=== PATIENT | female | born 1960 | race Caucasian/White ===

== ENCOUNTER → 2016-07-24 | Outpatient (CLI) | payer OTHER ==
[~2016-07-24] MED LIST: ABL/5 PO; ALBUTEROL NEB INH; ALEN70TA2 PO; ALPR-411 PO; ASPI325T45 PO; CALC-354 PO; CITA40TA12 PO; CLOP1TAB15 PO; CMBIN INH; FLNIN NAE; FNTTP50 TD; HYDR25SU4 PR; IPRA1AER2 INH; LISI-729 PO; OMEP40CA41 PO; OXYC1TAB3 PO; PREG1CAP28 PO; ROSU20TA PO; TOPI100T20; VERA240T20; ZOLP5TAB PO; [UNRECOGNIZED DRUG - CODE] OP
[2016-07-24 13:36] LABS: BLOOD UREA NITROGEN 14 mg/dl (7-18); CREATININE 0.87 mg/dl (0.60-1.20)
--- NOTE | 2016-07-24 13:40 | DIAGNOSTIC IMAGING REPORT ---
RIGHT ANKLE 3 VIEWS CLINICAL HISTORY: Fall several weeks ago. Right ankle pain. FINDINGS: 3 views of the right ankle are obtained. No prior studies are available for comparison at the time of dictation. The skeletal structures are osteopenic. No fracture is seen. The ankle mortise is intact. There is a small joint effusion. The overlying soft tissues are within normal limits. There is a large dorsal calcaneal enthesophyte. IMPRESSION: Joint effusion with no right ankle fracture identified. Electronically signed by: Raghav Curry M.D. 07/24/2016 1:39 PM Dictated Date/Time: 07/24/2016 1:37 PM
--- NOTE | 2016-07-24 13:41 | DIAGNOSTIC IMAGING REPORT ---
RIGHT FOOT MIN 3 VIEWS ROUTINE CLINICAL HISTORY: Fall 2 weeks ago with forced plantar flexion Right trauma. Pain. COMPARISON: None. DISCUSSION: The bones and joint spaces appear intact. There is no evidence of fracture, dislocation or bony disease. There is no evidence for soft tissue swelling. IMPRESSION: Negative study. Electronically signed by: Cody Sainz M.D. 07/24/2016 1:40 PM Dictated Date/Time: 07/24/2016 1:39 PM
== END | disposition home or self-care (01) ==
LOC: C.RAD 12:35
PROVIDERS: ATTEND Family Medicine
DX: R10.32 Left lower quadrant pain (principal)

== ENCOUNTER → 2016-07-26 | Outpatient (CLI) | payer OTHER ==
--- NOTE | 2016-07-26 12:55 | DIAGNOSTIC IMAGING REPORT ---
ABDOMEN AND PELVIS CT WITH ORAL CONTRAST CT DOSE: 281.20 mGy.cm HISTORY: Pain R10.32 Abdominal pain, left lower quadrant LLQ abd pain and tended TECHNIQUE: Multiaxial CT images of the abdomen and pelvis were performed following the use of oral contrast. COMPARISON STUDY: None. FINDINGS: Small calcified granuloma medial right base. Lung bases otherwise are clear. Calcified breast implant on the right. Intact left breast implant. Liver spleen and pancreas are considered unremarkable. Kidneys negative for hydronephrosis. Several small punctate nonobstructing renal calcifications are present. Evaluation of pelvis shows moderate wall thickening of the proximal to mid sigmoid colon. This appearance suggests a nonspecific colonic diverticular and a diverticulitis type process. Over this appears to be chronic with minimal superimposed acute component. There is no evidence for abscess collection or obstructive change. There is no significant abdominal pelvic or inguinal adenopathy. IMPRESSION: 1. Findings of a chronic proximal to mid sigmoid diverticulosis with a mild degree of superimposed acute diverticular change. 2. No evidence for abscess collection or obstruction. Electronically signed by: Cody Sainz M.D. 07/26/2016 12:53 PM Dictated Date/Time: 07/26/2016 12:49 PM
== END | disposition home or self-care (01) ==
LOC: C.CTS 09:40
PROVIDERS: ATTEND Family Medicine
DX: R10.32 Left lower quadrant pain (principal); K57.30 Diverticulosis of large intestine without perforation or abscess without bleeding

== ENCOUNTER → 2016-11-09 | Outpatient (CLI) | payer OTHER ==
[~2016-11-09] MED LIST changes: +PTDOPS OP
--- NOTE | 2016-11-09 14:15 | DIAGNOSTIC IMAGING REPORT ---
RIGHT SHOULDER 3 VIEWS HISTORY: Right shoulder pain. COMPARISON: None. FINDINGS: There is no fracture or dislocation. Soft tissues are unremarkable. No radiopaque foreign bodies. The right clavicle is intact. Cartilage spaces are maintained for age. IMPRESSION: No fractures. Electronically signed by: James Carreon M.D. 11/09/2016 2:14 PM Dictated Date/Time: 11/09/2016 2:13 PM
[2016-11-09 14:54] LABS: BENZODIAZEPINE, URINE POS (NEG); COCAINE,URINE NEG (NEG); PHENCYCLIDINE, URINE NEG (NEG)
[2016-11-13 05:44] LABS: HYDROXYETHYLFLURAZEPAM CONF NEGATIVE NG/ML (CUTOFF=50); HYDROXYMIDAZOLAM NEGATIVE NG/ML (CUTOFF=50); HYDROXYTRIAZOLAM CONF NEGATIVE NG/ML (CUTOFF=50); TEMAZEPAM CONF NEGATIVE NG/ML (CUTOFF=50)
== END | disposition home or self-care (01) ==
LOC: C.RAD 13:06
PROVIDERS: ATTEND Family Medicine
DX: M25.511 Pain in right shoulder (principal); M51.36 Other intervertebral disc degeneration, lumbar region; Z79.899 Other long term (current) drug therapy

== ENCOUNTER 2016-12-15 10:49 | Day surgery (SDC) | payer OTHER ==
[2016-12-04 13:39] VITALS: BMI 24.0
--- NOTE | 2016-12-04 14:36 | PAT Medication Instructions ---
Service Date Dec 04, 2016. Current Home Medication List Alprazolam (Xanax), 0.5 MG PO BID Calcium Carbonate-Cholecalcife (Caltrate 600+D), 1 TAB PO QAM Citalopram Hydrobromide (Celexa), 40 MG PO QAM Clopidogrel (Plavix), 75 MG PO QAM Fentanyl (Duragesic), 50 MCG TD CQ72HR Fluticasone Propionate (Flonase Nasal [place]), 2 SPRAYS [place]OW[place] QAM PRN for PRN Hydrocortisone Acetate (Rectal (Hydrocortisone Acetate), 25 MG NC HS PRN Ipratropium/Albuterol (Combivent *), 1-2 PUFF INH QID Ketotifen Fumarate (Ophth) (Ketotifen Fumarate), 1 DROP OP Lisinopril (Zestril), 5 MG PO QAM Omeprazole (Prilosec), 40 MG PO QAM Oxycodone Ir (Roxicodone Ir), 10 MG PO Q12H Rosuvastatin Calcium (Crestor), 20 MG PO QAM Topiramate (Topamax), 100 MG BID Zolpidem Tartrate (Ambien), 5 MG PO HS PRN [Albuterol Neb], 1 DOSE INH QAM Medication Instructions For Your Scheduled Surgery Clopidogrel (Plavix), 75 MG PO QAM (patient will check with family doctor for instructions) Fentanyl (Duragesic), 50 MCG TD CQ72HR (continue as usual) - Hold the following medications the morning of surgery: Lisinopril (Zestril), 5 MG PO QAM Calcium Carbonate-Cholecalcife (Caltrate 600+D), 1 TAB PO QAM - Take the following medications the morning of surgery with a sip of water: Albuterol Neb 1 DOSE INH QAM (if needed) Topiramate (Topamax), 100 MG BID Rosuvastatin Calcium (Crestor), 20 MG PO QAM Oxycodone Ir (Roxicodone Ir), 10 MG PO Q12H (can take up to four hours prior to surgery if needed) Omeprazole (Prilosec), 40 MG PO QAM Ketotifen Fumarate (Ophth) (Ketotifen Fumarate), 1 DROP OP Ipratropium/Albuterol (Combivent *), 1-2 PUFF INH QID Fluticasone Propionate (Flonase Nasal [place]), 2 SPRAYS ROWAN QAM PRN for PRN Citalopram Hydrobromide (Celexa), 40 MG PO QAM Alprazolam (Xanax), 0.5 MG PO BID - Take the following medications as scheduled the night before surgery: Zolpidem Tartrate (Ambien), 5 MG PO HS PRN Topiramate (Topamax), 100 MG BID Oxycodone Ir (Roxicodone Ir), 10 MG PO Q12H Hydrocortisone Acetate (Rectal (Hydrocortisone Acetate), 25 MG NC HS PRN Alprazolam (Xanax), 0.5 MG PO BID If you have any questions please call us at [phone] or [phone] ( [place]) or [phone]
--- NOTE | 2016-12-04 15:19 | DIAGNOSTIC IMAGING REPORT ---
CHEST 2 VIEWS ROUTINE CLINICAL HISTORY: Preoperative chest COMPARISON STUDY: 09/08/2015 FINDINGS: The cardiac and mediastinal contours remain stable. An ASD occluder is visualized. There is a right breast implant. There is no failure. There is no focal pulmonary consolidation. There are no pleural effusions.[ IMPRESSION: No active disease in the chest. Electronically signed by: Tramaine Barrios M.D. 12/04/2016 3:17 PM Dictated Date/Time: 12/04/2016 3:16 PM
[2016-12-04 15:22] LABS: BASO % 0.7 %; BASO ABS # 0.05 K/uL (0-0.2); COMPLETE YES; EOS % 3.4 %; HEMATOCRIT 43.7 % (37-47); IG% 0.3 %; LYMPH % 46.2 %; MEAN CELL VOLUME 93.2 fL (80-100); MEAN CORPUSCULAR HEMOGLOBIN 30.7 pg (25-34); MEAN PLATELET VOLUME 10.6 fL (7.4-10.4); MONO % 7.5 %; NEUT % 41.9 %; PLATELET COUNT 260 K/uL (130-400); RED BLOOD COUNT 4.69 M/uL (4.2-5.4); WHITE BLOOD COUNT 7.57 K/uL (4.8-10.8)
[2016-12-04 15:34] LABS: PARTIAL THROMBOPLASTIN RATIO 1.1; PROTHROMBIN TIME (PATIENT) 10.3 SECONDS (9.0-12.0)
[2016-12-04 15:44] LABS: BUN/CREATININE RATIO 13.2 (10-20); CREATININE 0.78 mg/dl (0.60-1.20); POTASSIUM 4.3 mmol/L (3.5-5.1)
--- NOTE | 2016-12-14 16:50 | HISTORY & PHYSICAL EXAMINATION ---
DATE OF ADMISSION: 12/15/2016 CHIEF COMPLAINT: External impingement of the right shoulder. HISTORY OF PRESENT ILLNESS: Baylee is a 56-year-old female who has been dealing with a several year history of right shoulder pain. It has become more debilitating. She is having trouble sleeping at night. She does have a history of breast implants and the right implant has ruptured and she is unable to get a surgery to remove it. She has been seeing another orthopedist for her right shoulder. She has tried several injections, which did not help much with her pain. MRI of her shoulder showed severe external impingement and she elected to proceed with arthroscopy. PAST MEDICAL HISTORY: Significant for heart disease, osteoarthritis, depression, blood clots including 2 strokes, hyperlipidemia, anemia, hypertension, stomach ulcers, asthma thrombosis, and mutation #3 clotting disorder. PAST SURGICAL HISTORY: Significant for bilateral breast implantations, tubal ligation, and hysterectomy. ALLERGIES: IODINE, MORPHINE AND CEPHALOSPORINS. MEDICATIONS: Include Celexa 40 mg daily, Plavix 75 mg daily, Xanax 1 mg twice a day as needed, fentanyl 50 mg every 72 hours, oxycodone 10 mg twice a day, Combivent sprays daily, Crestor 40 mg daily, and Topamax 100 mg 2 times a day. FAMILY HISTORY: Noncontributory. SOCIAL HISTORY: She is and lives alone. She has 3 children. She smokes half pack a day. She does a little activity. REVIEW OF SYSTEMS: She complains of severe right shoulder pain and all other pertinent review of systems is negative. PHYSICAL EXAMINATION: GENERAL: She is awake, alert and oriented x3. She is in no apparent distress. She is very pleasant. HEENT: Pupils are equal, round and reactive to light. Extraocular motions intact. Oral mucosa is pink and moist. HEART: Regular rate per radial pulse. LUNGS: [place] symmetrically bilaterally with no audible breath sounds. ABDOMEN: Soft, nontender, and nondistended. MUSCULOSKELETAL: On physical examination of her right shoulder, she only has about 90 degrees of forward elevation and 90 degrees of abduction. Passively, I can get her a little further, but she had a lot of pain. All her pain is located in the subacromial space and over the AC joint. She has some pain over the biceps tendon as well. Very positive [place] impingement signs. No evidence of adhesive capsulitis. MRI: It is a poor quality MRI with a lot of motion artifact. I did not see any definitive rotator cuff tears, but signs of external impingement and AC joint arthritis. IMPRESSION: Severe external impingement of the right shoulder. PLAN: We will proceed with a shoulder arthroscopy. Postoperatively, she will be placed in an arm sling and discharged to home. She will not be given oral pain medications because she is already getting them from another physician. [place]
[~2016-12-15] VITALS: Ht 162.6 cm; Wt 63.5 kg
[~2016-12-15 10:49] MED LIST changes: -ABL/5 PO; +ACETAMINOPHEN 500 MG TAB PO SCH; -ALEN70TA2 PO; -ASPI325T45 PO; +ATROPINE SULFATE 0.1 MG/ML 5ML SYR IV PRN; +CEFAZOLIN 2000 MG/60 ML D5W 60 ML IV SCH; +EpHEDrine SULFATE INJ 50 MG/ML AMP IV PRN; +FAMOTIDINE 20 MG TAB PO SCH; +FENTANYL CITRATE INJ 50 MCG/1 ML 2 ML VIAL IV PRN; +GABAPENTIN 300 MG CAP PO SCH; -IPRA1AER2 INH; +LACTATED RINGER'S 1000ML 1,000 ML IV SCH; +ONDANSETRON INJ 2 MG/ML 2 ML VIAL IV PRN; -PREG1CAP28 PO; -PTDOPS OP; -VERA240T20; +[UNRECOGNIZED DRUG - REMARK] SCH
[2016-12-15] MEDS ORDERED: MIDAZOLAM HCL 1 MG/ML 2ML VIAL ONE (11:05)
[2016-12-15] MEDS ORDERED: FENTANYL CITRATE INJ 50 MCG/1 ML 2 ML VIAL ONE (11:05)
[2016-12-15] MEDS ORDERED: NEOSTIGMINE METHYLSULFATE 5 MG/5 ML SYR ONE (11:06)
[2016-12-15] MEDS ORDERED: LIDOCAINE HCL 2% 2 ML VIAL (20MG/ML) ONE (11:06)
[2016-12-15] MEDS ORDERED: PROPOFOL IV EMULSION 10 MG/ML 20 ML VIAL IV ONE (11:06)
[2016-12-15] MEDS ORDERED: ROCURONIUM BROMIDE 10 MG/ML 5 ML VIAL ONE (11:06)
[2016-12-15] MEDS ORDERED: GLYCOPYRROLATE INJ 0.2 MG/ML VIAL ONE (11:06)
--- NOTE | 2016-12-15 11:21 | History & Physical Bridge Note ---
H&P Re-Evaluation Bridge Note: I have examined the patient, reviewed the History & Physical and in the interval since the performance of the History & Physical I have noted the following changes of clinical significance: No changes noted
[2016-12-15 11:30] VITALS: BP 114/74; PULSE 70; TEMP 36.8; O2SAT 98; Ht 162.6 cm; Wt 63.5 kg
[2016-12-15] MEDS ORDERED: ROPIVACAINE 0.5% 5 MG/ML 30 ML VIAL ONE (11:43)
[2016-12-15] MEDS ORDERED: NURSING VERBAL MED ORDER ONE (12:15)
[2016-12-15] MEDS ORDERED: EpINEphrine HCL INJ 1 MG/ML 5ML SYRINGE ONE ×2 (12:44→13:28)
[2016-12-15] MEDS ORDERED: BUPIVACAINE/EPINEPHRINE 0.5% MPF 1:200,000 10 ML VIAL ONE ×2 (12:45→13:29)
[2016-12-15] MEDS ORDERED: CLINDAMYCIN IV 900 MG in DEXTROSE 5% 100ML 100 ML IV SCH (13:00)
[2016-12-15] MEDS ORDERED: PHENYLEPHRINE 100MCG/ML 5ML SYR ONE (14:41)
[2016-12-15] MEDS ORDERED: EpHEDrine SULFATE 50MG/5ML SYR ONE (14:41)
--- NOTE | 2016-12-15 15:10 | [facility] Post Operative Brief Note ---
Immediate Operative Summary Operative Date Dec 15, 2016. Pre-Operative Diagnosis Severe external impingement of the right shoulder Post-Operative Diagnosis Severe external impingement of the right shoulder with adhesive capsulitis Procedure(s) Performed Right Arthroscopy Shoulder Subacromial Decompression, Distal Clavicle Resection and capsular release Surgeon Dr. Marla Muhammad Taxi Cab Driver Surgeon(s) Santiago Diaz PA-C Estimated Blood Loss 5 ml Findings as above Specimens none Complication(s) None Disposition Recovery Room / PACU
[2016-12-15] MEDS ORDERED: SODIUM CHLORIDE 0.9% 1000ML 1,000 ML IV SCH (15:25)
--- NOTE | 2016-12-15 15:25 | Discharge Instructions ---
Discharge Instructions Date of Service Dec 15, 2016. Admission Reason for Admission: Right Shoulder Acromioclavicular Joint Arthritis Discharge Discharge Diagnosis / Problem: SAME ABOVE Discharge Goals Goal(s): Decrease discomfort, Improve function Activity Recommendations Activity Limitations: as noted below Lifting Limitations: gradually increase as tolerated Exercise/Sports Limitations: gradually increase as tolerated . Instructions / Follow-Up Instructions / Follow-Up MEDICATIONS: * Resume previous medications unless instructed otherwise by your surgeon. * Always take pain medication on a full stomach or with food to avoid upset stomach. * Do not drink alcohol or drive while taking narcotics. * Ibuprofen or Tylenol may be taken if narcotic not needed. SPECIAL CARE INSTRUCTIONS: __ None _X_ Keep extremity elevated and iced x 48 hours; apply ice 20-30 minutes 8-10 times/day. May remove at night. _X_ Sling (WEAR NEEDED FOR COMFORT) __24 hrs/day __ Remove at night __ Shoulder Immobilizer __ 24 hrs/day __ Remove at night _X_ Dressing __ Maintain until seen in office, may shower with plastic over site _X_ Remove dressings in 24-48 hours and then may shower _X_ Cover incisions with band-aids after showering __ Do not remove steri-strips Call physician if chills or temperature rises above 102 degrees or pain unrelieved by prescribed pain medications at . . Current Hospital Diet Patient's current hospital diet: Discharge Diet Recommended Diet: Regular Diet Fluid Restriction: None Procedures Procedures Performed: Right Arthroscopy Shoulder Subacromial Decompression, Distal Clavicle Resection and capsular release Pending Studies Studies pending at discharge: no Medical Emergencies . Who to Call and When: Medical Emergencies: If at any time you feel your situation is an emergency, please call 911 immediately. . Non-Emergent Contact Non-Emergency issues call your: Primary Care Provider Call Non-Emergent contact if: you have a fever, temperature is above 101.5 . "Provider Documentation" section prepared by Santiago Diaz. . VTE Core Measure Inpt VTE Proph given/why not?: SCD's
[2016-12-15] MEDS ORDERED: ONDANSETRON INJ 2 MG/ML 2 ML VIAL IV PRN (15:30)
[2016-12-15 16:10] VITALS: BP 97/65; PULSE 70; TEMP 36.4; O2SAT 96
--- NOTE | 2016-12-15 16:19 | Anesthesiology Progress Note ---
Anesthesia Post Op Note Date & Time Dec 15, 2016 at 16:19 Vital Signs Pain Intensity: 0 Vital Signs Past 12 Hours Date Time Temp Pulse Resp B/P (MAP) Pulse Ox O2 Delivery O2 Flow Rate FiO2 12/15/16 16:00 36.1 75 21 108/72 100 Room Air 12/15/16 15:50 72 18 126/68 100 Room Air 12/15/16 15:40 73 18 114/73 100 Mask 10 12/15/16 15:30 74 16 112/79 100 Mask 10 12/15/16 15:23 36.3 77 16 112/83 99 Mask 10 12/15/16 13:45 77 16 112/64 (80) 99 Mask 10 12/15/16 11:30 36.8 70 20 114/74 98 Room Air Notes Mental Status: alert / awake / arousable, participated in evaluation Pt Amnestic to Procedure: Yes Nausea / Vomiting: adequately controlled Pain: adequately controlled Airway Patency, RR, SpO2: stable & adequate BP & HR: stable & adequate Hydration State: stable & adequate Anesthetic Complications: no major complications apparent
[2016-12-15 16:40] VITALS: BP 92/59; PULSE 87; O2SAT 97
[2016-12-15 17:00] VITALS: BP 90/66; PULSE 82; TEMP 36.4; O2SAT 99
--- NOTE | 2016-12-15 19:16 | OPERATIVE REPORT ---
DATE OF OPERATION: 12/15/2016 PREOPERATIVE DIAGNOSIS: External impingement, acromioclavicular joint arthritis of the right shoulder. POSTOPERATIVE DIAGNOSIS: External impingement, acromioclavicular joint arthritis and adhesive capsulitis of the right shoulder. PROCEDURE: A right shoulder diagnostic arthroscopy with limited debridement, a lysis of adhesions, distal clavicle resection, acromioplasty and manipulation under anesthesia. SURGEON: Dr. Adam Muhammad. HEAD MEN'S GOLF COACH: Iker Diaz PA-C, whose assistance was necessary for positioning of the arm and helping with instrumentation. ANESTHESIA: General with a right interscalene nerve block. COMPLICATIONS: None. CONDITION: Stable to PACU. INDICATIONS: Baylee is a pleasant 56-year-old female, who presented to my office with a 6-month history of increasing rather severe shoulder pain. It was kind of a global pain. She hurt a lot at the AC joint. MRI showed external impingement, AC joint arthritis. After failing conservative treatment, she elected to undergo arthroscopy. OPERATION AND FINDINGS: On 12/15/2016, she arrived at [facility] for the above procedure. She was seen in the preoperative holding area and the operative extremity was identified and signed. She was given a preoperative antibiotic, and right interscalene nerve block. She was taken back to the operating room, laid on the table in supine position and put under general anesthesia. She was then put into the beachchair position. The right shoulder was prepped and draped in sterile fashion. A time-out was done and the patient and operative extremity was properly identified. On preoperative physical examination, she felt a little bit tight in abduction and external rotation. Not very tight, but just a little bit tight. A gentle manipulation was done under anesthesia and I was able to get full range of motion of her shoulder. The scope was then put into the posterior portal. Diagnostic arthroscopy showed no cartilage damage to the humeral head or the glenoid. The biceps tendon was intact and went through a normal size biceps bhumika mechanism. The supraspinatus, infraspinatus, teres minor, and subscapularis were all checked and intact. There was a cord like middle glenohumeral ligament and significant redness and tearing of the anterior inferior glenohumeral ligament from the manipulation. An anterior portal was made. A shaver was used to do a limited debridement of the intraarticular structures. An ablator was used to do a lysis of adhesions and complete an anterior-inferior capsular release. The biceps tendon was pulled into the joint and there was no evidence of pathology. The scope was then put into the subacromial space. A lateral portal was made. A shaver was used to do a complete subacromial and subdeltoid bursectomy. An ablator was used to tease the coracoacromial ligament off the undersurface of the acromion and a 5-0 farhan was used to complete an acromioplasty of a Bigliani type 2 acromion. A shaver was used to remove any excess debris. The bursal side of the rotator cuff was examined extensively without evidence of tear. Attention was turned to the distal clavicle. Through an anterior portal, a shaver and ablator were used to skeletonize the distal clavicle. A 5-0 farhan was then used to resect the distal 5 mm from the clavicle. Complete resection was checked under direct visualization. Final diagnostic arthroscopy showed no additional pathology. Arthroscopic instruments were removed from the shoulder. Portal sites were closed with 3-0 nylon. She was then placed in a soft dressing and a regular arm sling. She was then extubated, transferred [facility] and taken to the postanesthesia care unit in stable condition. She tolerated the procedure well. I attest to the content of the Intraoperative Record and any orders documented therein. Any exception s are noted below.
[2017-04-04] MEDS ORDERED: IPRA1AER2 INH (08:43)
[2017-04-04] MEDS ORDERED: PTDOPS OP (08:43)
== END 2016-12-15 17:20 | disposition home or self-care (01) ==
LOC: C.ACU 10:49
PROVIDERS: ATTEND Orthopaedic Surgery
DX: M25.811 Other specified joint disorders, right shoulder (principal); M75.01 Adhesive capsulitis of right shoulder; M19.90 Unspecified osteoarthritis, unspecified site; F32.9 Major depressive disorder, single episode, unspecified; F17.200 Nicotine dependence, unspecified, uncomplicated; E78.5 Hyperlipidemia, unspecified; D64.9 Anemia, unspecified; I10 Essential (primary) hypertension; Z98.82 Breast implant status; Z79.899 Other long term (current) drug therapy

== ENCOUNTER → 2017-03-02 | Outpatient (CLI) | payer OTHER ==
[~2017-03-02] MED LIST changes: -ACETAMINOPHEN 500 MG TAB PO SCH; -ATROPINE SULFATE 0.1 MG/ML 5ML SYR IV PRN; -CEFAZOLIN 2000 MG/60 ML D5W 60 ML IV SCH; -EpHEDrine SULFATE INJ 50 MG/ML AMP IV PRN; -FAMOTIDINE 20 MG TAB PO SCH; -FENTANYL CITRATE INJ 50 MCG/1 ML 2 ML VIAL IV PRN; -GABAPENTIN 300 MG CAP PO SCH; +IPRA1AER2 INH; -LACTATED RINGER'S 1000ML 1,000 ML IV SCH; -ONDANSETRON INJ 2 MG/ML 2 ML VIAL IV PRN; +PTDOPS OP; -ZOLP5TAB PO; -[UNRECOGNIZED DRUG - REMARK] SCH
--- NOTE | 2017-03-02 15:49 | MAMMOGRAPHY REPORT ---
BILATERAL DIGITAL SCREENING MAMMOGRAM WITH CAD: 03/02/2017 CLINICAL HISTORY: Routine screening. The patient reported to the technologist that she has pain in h er right arm and axilla. TECHNIQUE: Current study was also evaluated with a Computer Aided Detection (CAD) system. Bilateral CC and MLO views including implant displaced views were obtained. COMPARISON: Comparison is made to exams dated: 03/03/2009 mammogram, 10/01/2012 mammogram, and 12/22/2013 mammogram - [facility]. BREAST COMPOSITION: The tissue of both breasts is almost entirely fatty. FINDINGS: No suspicious masses, calcifications, or areas of architectural distortion are noted in ei ther breast. There has been no significant interval change compared to prior exams. Bilateral subpec lina implants are stable in appearance. IMPRESSION: ACR BI-RADS CATEGORY 2: BENIGN There is no mammographic evidence of malignancy. A 1 year screening mammogram is recommended. The pa tient will receive written notification of the results. Approximately 10% of breast cancers are not detected with mammography. A negative mammographic report should not delay biopsy if a clinically suggestive mass is present. Kaylee Holman M.D. /:03/02/2017 12:46:27 Keel Press Operator: Parag MCGREGOR)([place]), [facility] letter sent: Normal 1/2 BI-RADS Code: ACR BI-RADS Category 2: Benign
== END | disposition home or self-care (01) ==
LOC: C.MAMM 11:48
PROVIDERS: ATTEND Family Medicine
DX: Z12.31 Encounter for screening mammogram for malignant neoplasm of breast (principal)

== ENCOUNTER → 2017-04-04 | Outpatient (CLI) | payer OTHER ==
[2017-04-04 10:14] LABS: CHOLESTEROL/HDL RATIO 1.9
== END | disposition home or self-care (01) ==
LOC: C.LAB 08:33
PROVIDERS: ATTEND Family Medicine
DX: E78.2 Mixed hyperlipidemia (principal)

== ENCOUNTER 2017-04-13 10:34 | Day surgery (SDC) | payer OTHER ==
[2017-04-04 08:44] VITALS: Ht 162.6 cm; Wt 63.1 kg
--- NOTE | 2017-04-04 09:20 | PAT Medication Instructions ---
Service Date Apr 04, 2017. Current Home Medication List Alprazolam (Xanax), 0.5 MG PO BID Citalopram Hydrobromide (Celexa), 40 MG PO QAM Clopidogrel (Plavix), 75 MG PO QAM Fentanyl (Duragesic), 50 MCG TD CQ72HR Hydrocortisone Acetate (Rectal (Hydrocortisone Acetate), 25 MG MO HS PRN Ipratropium-Albuterol (Combivent Respimat), 1 PUFFS INH QID Olopatadine Hydrochloride (Pataday), 1 DROPS OP DAILY Omeprazole (Prilosec), 40 MG PO QAM Oxycodone Ir (Roxicodone Ir), 10 MG PO Q8H Rosuvastatin Calcium (Crestor), 40 MG PO QAM Topiramate (Topamax), 100 MG BID [Albuterol Neb], 1 DOSE INH PRN Medication Instructions For Your Scheduled Surgery Fentanyl (Duragesic), 50 MCG TD CQ72HR (avoid placement near surgery site) - Check with surgeon and prescribing physician for instructions: Clopidogrel (Plavix), 75 MG PO QAM - Take the following medications the morning of surgery with a sip of water: Alprazolam (Xanax), 0.5 MG PO BID Citalopram Hydrobromide (Celexa), 40 MG PO QAM Ipratropium-Albuterol (Combivent Respimat), 1 PUFFS INH QID Olopatadine Hydrochloride ([place]), 1 DROPS OP DAILY Omeprazole (Prilosec), 40 MG PO QAM Oxycodone Ir (Roxicodone Ir), 10 MG PO Q8H (okay to take up to 4 hours prior to surgery if needed) Rosuvastatin Calcium (Crestor), 40 MG PO QAM Topiramate (Topamax), 100 MG BID [Albuterol Neb], 1 DOSE INH PRN (if needed) - Take the following medications as scheduled the night before surgery: Topiramate (Topamax), 100 MG BID [Albuterol Neb], 1 DOSE INH PRN (if needed) Olopatadine Hydrochloride ([place]), 1 DROPS OP DAILY Oxycodone Ir (Roxicodone Ir), 10 MG PO Q8H Ipratropium-Albuterol (Combivent Respimat), 1 PUFFS INH QID Hydrocortisone Acetate (Rectal (Hydrocortisone Acetate), 25 MG MO HS PRN (if needed) Alprazolam (Xanax), 0.5 MG PO BID If you have any questions please call us at [phone] or [phone] or [phone]
[2017-04-04 09:56] LABS: BASO % 1.2 %; COMPLETE YES; EOS % 3.5 %; IG% 0.1 %; LYMPH % 37.8 %; LYMPH ABS # 3.13 K/uL (1.2-3.4); MEAN CELL VOLUME 92.8 fL (80-100); MEAN CORPUSCULAR HEMOGLOBIN 30.7 pg (25-34); MEAN CORPUSCULAR HGB CONC 33.1 g/dl (32-36); MEAN PLATELET VOLUME 10.9 fL (7.4-10.4); MONO % 7.5 %; NEUT % 49.9 %; PLATELET COUNT 235 K/uL (130-400); RED BLOOD COUNT 4.85 M/uL (4.2-5.4); WHITE BLOOD COUNT 8.27 K/uL (4.8-10.8)
[2017-04-04 10:07] LABS: PROTHROMBIN TIME (PATIENT) 10.3 SECONDS (9.0-12.0)
[2017-04-04 10:19] LABS: BUN/CREATININE RATIO 18.4 (10-20); CALCIUM 9.2 mg/dl (8.5-10.1); CREATININE 0.79 mg/dl (0.60-1.20); POTASSIUM 4.6 mmol/L (3.5-5.1)
--- NOTE | 2017-04-12 18:42 | HISTORY & PHYSICAL EXAMINATION ---
DATE OF ADMISSION: 04/13/2017 HISTORY AND PHYSICAL ADMISSION NOTE CHIEF COMPLAINT: Postoperative adhesive capsulitis of the right shoulder and olecranon bursitis. HISTORY OF PRESENT ILLNESS: Baylee is a 57-year-old female who I did a right shoulder arthroscopy for decompression about 4 months ago. During the procedure, I did notice the adhesive capsulitis and did a capsular release at that time. Unfortunately, she has continued to have a lot of pain and stiffness in her shoulder. She has been very stiff postoperatively. She has elected to proceed with a manipulation under anesthesia of her shoulder with an open excision of olecranon bursa. Baylee has also been complaining of a year long history of a golf ball size olecranon bursitis on her right elbow. She has had aspirated several times and has always returns. PAST MEDICAL HISTORY: Significant for a heart murmur, hypertension, hyperlipidemia, asthma, COPD, anxiety, stroke, and GERD. MEDICATIONS: Include Celexa 40 mg daily, Plavix 75 mg daily, Xanax twice a day as needed, fentanyl 50 mg every 72 hours, oxycodone 10 mg 3 times a day, Combivent 1 spray daily, Crestor 40 mg daily, and Topamax 100 mg 2 times a day. PAST SURGICAL HISTORY: Significant for a right shoulder arthroscopy for decompression and capsular release 4 months ago. ALLERGIES: INCLUDE IODINE, CEPHALOSPORINS AND BACTRIM. FAMILY HISTORY: Noncontributory. SOCIAL HISTORY: She smokes a half pack a day for most of her life. She denies any alcohol or drug use. She likes to remain active. REVIEW OF SYSTEMS: She complains of right shoulder and right elbow pain. All other pertinent review of systems is negative. PHYSICAL EXAMINATION: EXTREMITIES: Physical examination of the right shoulder: Passively, she has about 120 degrees of forward elevation, 80 degrees abduction. Her endpoints feel soft, but she has very pain and range of motion. She only has about 30 degrees of external rotation. On physical examination of her right elbow: There is a golf ball sized area of bursitis on the posterior aspect of her elbow. She has full range of motion of her elbow and no instability. There are no abrasions, lesions, lacerations. SKIN: No signs of infection. IMPRESSION: 1. Postoperative adhesive capsulitis of the right shoulder. 2. Large olecranon bursitis of the right elbow. PLAN: Will proceed with a manipulation under anesthesia of the right shoulder as well as removal of the olecranon bursa of the right elbow. Postoperatively, she will be placed in a sling and discharged to home on oral pain medications. She is to start physical therapy tomorrow. [place]
[~2017-04-13] VITALS: Ht 162.6 cm; Wt 63.1 kg
[~2017-04-13 10:34] MED LIST changes: +ACETAMINOPHEN 500 MG TAB PO SCH; -CALC-354 PO; +CEFAZOLIN 2000MG IV PUSH 10 ML IV SCH; -CMBIN INH; -FLNIN NAE; +LACTATED RINGER'S 1000ML 1,000 ML IV SCH; +LACTATED RINGER'S 1000ML IV SCH; -LISI-729 PO; -[UNRECOGNIZED DRUG - CODE] OP
[2017-04-13 11:45] VITALS: BP 112/82; PULSE 74; TEMP 36.4; O2SAT 99
[2017-04-13] MEDS ORDERED: NURSING VERBAL MED ORDER ONE (12:45)
[2017-04-13] MEDS ORDERED: MIDAZOLAM HCL 1 MG/ML 2ML VIAL ONE ×2 (13:32→13:34)
[2017-04-13] MEDS ORDERED: FENTANYL CITRATE INJ 50 MCG/1 ML 2 ML VIAL ONE (13:32)
[2017-04-13] MEDS ORDERED: CLONIDINE HCL 100 MCG/ML SYRINGE ONE (13:48)
[2017-04-13] MEDS ORDERED: BUPIVACAINE 0.5 % 5 MG/1 ML PF 10ML VIAL ONE (13:48)
[2017-04-13] MEDS ORDERED: DEXAMETHASONE SOD INJ 4 MG/ML VIAL ONE ×2 (13:48→14:43)
[2017-04-13] MEDS ORDERED: ROPIVACAINE 0.5% 5 MG/ML 30 ML VIAL ONE (13:48)
[2017-04-13] MEDS ORDERED: ATROPINE SULFATE 0.1 MG/ML 5ML SYR IV PRN (14:15)
[2017-04-13] MEDS ORDERED: FENTANYL CITRATE INJ 50 MCG/1 ML 2 ML VIAL IV PRN (14:15)
[2017-04-13] MEDS ORDERED: ONDANSETRON INJ 2 MG/ML 2 ML VIAL IV PRN ×2 (14:15→15:15)
[2017-04-13] MEDS ORDERED: BUPIVACAINE 0.25% 30 ML VIAL ONE (14:33)
[2017-04-13] MEDS ORDERED: METHYLPREDNISOLONE ACETATE 80 MG/ML VIAL ONE (14:33)
[2017-04-13] MEDS ORDERED: PROPOFOL IV EMULSION 10 MG/ML 20 ML VIAL IV ONE (14:43)
[2017-04-13] MEDS ORDERED: LIDOCAINE HCL 2% 2 ML VIAL (20MG/ML) ONE (14:43)
[2017-04-13] MEDS ORDERED: PHENYLEPHRINE 100MCG/ML 5ML SYR ONE (14:43)
[2017-04-13] MEDS ORDERED: ONDANSETRON INJ 2 MG/ML 2 ML VIAL ONE (14:43)
--- NOTE | 2017-04-13 14:58 | [facility] Post Operative Brief Note ---
Immediate Operative Summary Operative Date Apr 13, 2017. Pre-Operative Diagnosis Right shoulder capsulitis Right olecranon bursitis Post-Operative Diagnosis Same Procedure(s) Performed Manipulation Under Anesthesia Right Shoulder with Excision of Olecranon Bursa Right Elbow Surgeon Dr Muhammad Picture Enlarger Surgeon(s) none Estimated Blood Loss 5ml Findings as above Specimens none Complication(s) None Disposition Recovery Room / PACU
[2017-04-13] MEDS ORDERED: SODIUM CHLORIDE 0.9% 1000ML 1,000 ML IV SCH (15:04)
--- NOTE | 2017-04-13 15:04 | Discharge Instructions ---
Discharge Instructions Date of Service Apr 13, 2017. Admission Reason for Admission: Right Shoulder Adhesive Capsulitis, Olecranon Bur Discharge Discharge Diagnosis / Problem: SAME ABOVE Discharge Goals Goal(s): Decrease discomfort, Improve function Activity Recommendations Activity Limitations: as noted below Lifting Limitations: until after follow-up appointment Exercise/Sports Limitations: until after follow-up appointment Shower/Bathe: may shower/bathe in 3 days (MAY SHOWER SOONER IF DRESSING IS COVERED ) . Instructions / Follow-Up Instructions / Follow-Up MEDICATIONS: * Resume previous medications unless instructed otherwise by your surgeon. * Always take pain medication on a full stomach or with food to avoid upset stomach. * Do not drink alcohol or drive while taking narcotics. * Ibuprofen or Tylenol may be taken if narcotic not needed. SPECIAL CARE INSTRUCTIONS: __ None _X_ Keep extremity elevated and iced x 48 hours; apply ice 20-30 minutes 8-10 times/day. May remove at night. _X_ Sling (REMOVE TOMORROW) __24 hrs/day __ Remove at night __ Shoulder Immobilizer __ 24 hrs/day __ Remove at night _X_ Dressing __ Maintain until seen in office, may shower with plastic over site _X_ Remove dressings in 48 hours and then may shower _X_ Cover incisions with band-aids after showering __ Do not remove steri-strips Call physician if chills or temperature rises above 102 degrees or pain unrelieved by prescribed pain medications at . . Current Hospital Diet Patient's current hospital diet: Discharge Diet Recommended Diet: Regular Diet Procedures Procedures Performed: Manipulation Under Anesthesia Right Shoulder with Excision of Olecranon Bursa Right Elbow Pending Studies Studies pending at discharge: no Laboratory Results Lipid Panel Test 04/04/17 09:25 Range/Units Triglycerides Level 76 0-150 mg/dl Cholesterol Level 134 0-200 mg/dl HDL Cholesterol 72 mg/dl Cholesterol/HDL Ratio 1.9 LDL Cholesterol, Calculated 47 mg/dl Work Instructions Return To Work: after follow-up Medical Emergencies . Who to Call and When: Medical Emergencies: If at any time you feel your situation is an emergency, please call 911 immediately. . Non-Emergent Contact Non-Emergency issues call your: Primary Care Provider Call Non-Emergent contact if: you have a fever, temperature is above 101.5 . "Provider Documentation" section prepared by Santiago Diaz. . VTE Core Measure Inpt VTE Proph given/why not?: Treatment not indicated
--- NOTE | 2017-04-13 15:25 | OPERATIVE REPORT ---
DATE OF OPERATION: 04/13/2017 PREOPERATIVE DIAGNOSES: 1. Adhesive capsulitis of the right shoulder. 2. 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 POSTOPERATIVE DIAGNOSES: Same. PROCEDURE: Right shoulder manipulation under anesthesia and a right elbow excision of the olecranon bursa. SURGEON: Dr. Adam Muhammad. MEDICAID BILLER: None. ANESTHESIA: General with a right interscalene nerve block. COMPLICATIONS: None. CONDITION: Stable to PACU. INDICATIONS FOR PROCEDURE: Baylee is a pleasant 57-year-old female who I did a right shoulder decompression about 5 months ago. Unfortunately, her shoulder has gotten tight postoperatively. I diagnosed her with postoperative adhesive capsulitis. She elected to undergo manipulation under anesthesia of the right shoulder. She has also been having a year long history of right olecranon bursitis. She says that continues to fill up and she has failed over a year of conservative treatment, she elected to have that excised as well. DESCRIPTION OF PROCEDURE: On 04/13/2016, she arrived at [facility] for the above procedure. She was seen in the preoperative holding area and the operative extremity was identified and signed. She was given a preoperative antibiotic and a right interscalene nerve block. She was taken back to the operating room, laid on the table in supine position and put under general anesthesia. A time-out was done and the patient and operative extremity was properly identified. The manipulation was done first. Before the manipulation, she had about 80 degrees of abduction and 70 degrees of external rotation. A gentle manipulation was done under anesthesia and I was able to easily break up the capsulitis. I was able to get full range of motion of her shoulder with about 120 degrees of abduction with the scapula stabilized and about 110 degrees of external rotation and full internal rotation. The shoulder was then injected with 80 mg of Depo-Medrol and 3 mL of Marcaine. The left elbow was then prepped and draped in sterile fashion and attention was then turned to the excision of the olecranon bursa. A small curvilinear incision was made just lateral to the olecranon bursa. Dissection was taken down to the bursa and all the bursal tissue was excised. Time was spent ensuring complete excision of the bursal tissue. The wound was then irrigated and closed with 3-0 Vicryl and 4-0 nylon suture. She was then placed in a soft dressing and regular arm sling. She was then extubated, transferred to a [facility] and taken to the postanesthesia care unit in stable condition. She tolerated the procedure well. I attest to the content of the Intraoperative Record and any orders documented therein. Any exception s are noted below.
[2017-04-13 15:45] VITALS: BP 98/65; PULSE 101; TEMP 36.5; O2SAT 98
[2017-04-13 16:15] VITALS: BP 110/63; PULSE 78; O2SAT 98
[2017-04-13 16:45] VITALS: BP_SYST 56; BP_SYST 88; BP_DIAS 63; PULSE 88; O2SAT 95
[2017-04-13 17:15] VITALS: BP_SYST 91; BP_SYST 98; BP_DIAS 63; BP_DIAS 69; PULSE 89; O2SAT 95
[2017-04-13 17:45] VITALS: BP 103/76; PULSE 73; TEMP 36.2; O2SAT 96
== END 2017-04-13 18:12 | disposition home or self-care (01) ==
LOC: C.ACU 10:34
PROVIDERS: ATTEND Orthopaedic Surgery
DX: M75.01 Adhesive capsulitis of right shoulder (principal); M70.21 Olecranon bursitis, right elbow; R01.1 Cardiac murmur, unspecified; I10 Essential (primary) hypertension; E78.5 Hyperlipidemia, unspecified; J44.9 Chronic obstructive pulmonary disease, unspecified; K21.9 Gastro-esophageal reflux disease without esophagitis; F41.9 Anxiety disorder, unspecified; Z86.73 Personal history of transient ischemic attack (TIA), and cerebral infarction without residual deficits; Z79.02 Long term (current) use of antithrombotics/antiplatelets; Z79.899 Other long term (current) drug therapy

== ENCOUNTER → 2017-09-11 | Outpatient (CLI) | payer OTHER ==
[~2017-09-11] MED LIST changes: -ACETAMINOPHEN 500 MG TAB PO SCH; -CEFAZOLIN 2000MG IV PUSH 10 ML IV SCH; -LACTATED RINGER'S 1000ML 1,000 ML IV SCH; -LACTATED RINGER'S 1000ML IV SCH
[2017-09-11 13:51] LABS: BLOOD UREA NITROGEN 22 mg/dl (7-18); CALCIUM 9.3 mg/dl (8.5-10.1); CARBON DIOXIDE 25 mmol/L (21-32); CHOLESTEROL 152 mg/dl (0-200); CREATININE 0.88 mg/dl (0.60-1.20); GLUCOSE 105 mg/dl (70-99); POTASSIUM 4.3 mmol/L (3.5-5.1); SODIUM 138 mmol/L (136-145); URIC ACID 2.1 mg/dl (2.6-7.2)
[2017-09-11 13:52] LABS: LDL CHOLESTEROL CALCULATED 61 mg/dl
== END | disposition home or self-care (01) ==
LOC: C.LABPBG 07:47
PROVIDERS: ATTEND Family Medicine
DX: I10 Essential (primary) hypertension (principal); E78.2 Mixed hyperlipidemia

== ENCOUNTER 2020-07-05 16:42 | Observation (INO) ==
--- NOTE | 2020-07-05 16:54 | CT Scan Report ---
CT head/brain wo con CLINICAL HISTORY: Stroke Like Symptoms COMPARISON STUDY: No previous studies for comparison. TECHNIQUE: Axial CT of the brain is performed from the vertex to the skull base. IV contrast was not administered for this examination. A dose lowering technique was utilized adhering to the principles of ALARA. CT DOSE: 614.27 mGy.cm FINDINGS: No intra or extra-axial mass lesions are visualized. There is no CT evidence of acute cortical infarc tion. There is no evidence of midline shift. There is no acute hemorrhage. No calvarial fractures ar e visualized. There is a left occipital lobe infarct, likely late subacute or chronic. There is no evidence of pathologic ventricular dilatation. There is no evidence of acute sinusitis IMPRESSION: 1. 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 2. No acute intracranial findings ACT 112: Negative or not required by law. Electronically signed by: Tramaine Barrios M.D. 07/05/2020 4:53 PM
[2020-07-05 17:16] LABS: iSTAT Creatinine 1.5 mg/dl (0.6-1.3); iSTAT Hemoglobin 13.3 g/dl (12.0-16.0); iSTAT Ionized Calcium 1.21 mmol/l (1.12-1.32); iSTAT Potassium 3.9 mmol/L (3.3-5.0)
--- NOTE | 2020-07-05 17:17 | Emergency Department Note ---
Impression & Plan Stroke-like symptoms, Weakness ED Provider Note NAME: JANE SALAZAR AGE: 60 SEX: F : 1960 ARRIVES VIA: Ambulance INFORMANT: Patient, prehospital personnel ED PROVIDER(S): Wali Arora DO CHIEF COMPLAINT: Strokelike symptoms HPI: The patient is a 60-year-old female who presented to the emergency department by ambulance for an evaluation of possible strokelike symptoms. The patient states that approximately 3 PM today she started noticing that she was not feeling well. She describes a slight headache but also she became very flushed and started noticing that she could not use her right arm as normally. She also had numbness over the right face right arm and right lower extremity. The patient has a history of stroke in the past. She also takes oral anticoagulation. She normally takes her oral blood thinner at 3 PM and she states that she did take it prior to the onset of the symptoms. I received a prehospital notification about this patient. She was made a stroke alert prior to arrival. On route the sheeting puller noted that the patient was having upper extremity weakness. She was also noted to be very anxious and had very elevated blood pressure. Upon arrival to the emergency department her symptoms have significantly improved. She still continues to have some slurred speech. She states she does note some tingling in the upper extremity as well as right side of face. She denies having any nausea or vomiting. She has no chest pain. She denies having any difficulty breathing. 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 She states this was treated surgically. She also has hypercoagulable state according to the patient. ROS: See above HPI for pertinent positives & negatives. A total of 10 systems reviewed and were otherwise negative. PAST MEDICAL HISTORY: See Below PAST SURGICAL HISTORY: See Below FAMILY HISTORY: See Below SOCIAL HISTORY: See Below HOME MEDICATIONS: See Below ALLERGIES: See Below VITALS: See Below PHYSICAL EXAMINATION: GENERAL: The patient is awake and alert. The patient is somewhat anxious appearing but overall comfortable. EYES: The conjunctivae are clear. The pupils are round and reactive. EARS, NOSE, MOUTH AND THROAT: The nose is without any evidence of any deformity. Mucous membranes are moist. Tongue is midline. NECK: The neck is nontender and supple. RESPIRATORY: Normal respiratory effort is noted there is no evidence of wheezing rhonchi or rales CARDIOVASCULAR: Regular rate and rhythm noted there no murmurs rubs or gallops normal S1 normal S2. GASTROINTESTINAL: The abdomen is soft. Abdomen is nontender. MUSCULOSKELETAL/EXTREMITIES: There is no evidence of gross deformity full range of motion is noted in the hips and shoulders. SKIN: There is no obvious evidence of any rash. There are no petechiae, pallor or cyanosis noted. NEUROLOGIC: Patient is awake alert and oriented x3. Speech is slightly pressured but very understandable. There is no drift in the upper extremities. No facial droop was noted. Patient is able to hold each leg off the bed for greater than 5 seconds. MEDICAL DECISION MAKING: The patient is a 60-year-old female who presented to the emergency department for an evaluation of weakness. The patient has a history of stroke in the past. She does take oral anticoagulation. She was made a stroke alert prior to arrival but was not a candidate for TPA because of her appropriate use of oral anticoagulants. She was not felt to be a candidate for thrombolysis given her rapidly improving symptoms and her clinical presentation not being consistent with a large vessel occlusion. CT angiography was not obtained due to the patient's allergy to contrast. I did discuss this with the on-call stroke neur ologist. At this point she agrees that since the patient's symptoms are rapidly improving she would not be a candidate for intervention but other radiographic studies could be obtained. The patient was reevaluated multiple times. She was found to have very elevated blood pressure prior to arrival but this was significantly improved upon arrival. The patient understood that her symptoms were consistent with a possible strokelike syndrome but at this time her CT did not show any acute process. There was a possible area of subacute presentation for occipital infarct however the patient does have a previous MRI scanned into the system that makes this less likely. I discussed the patient's condition with the on-call [facility] hospitalist. They have agreed to evaluate the patient in the emergency department for further management and disposition. Triage Nursing notes reviewed. Prior medical records reviewed Vital Signs: reviewed and remarkable for no significant abnormalities Differential diagnosis: Infection, dehydration, metabolic abnormality, hypo/hyperglycemia, electrolyte disturbance, anemia, hypoxia, cardiac sources, intracerebral event, toxicologic, neurologic, as well as other pathologies. ER treatment provided: See below Diagnostics interpreted by me: ECG: EKG was obtained in the emergency department. My interpretation is normal sinus rhythm at 70 bpm. There was no ectopy. There was no acute ST segment abnormalities noted. This was compared to a tracing from September 172019. No significant changes were noted. Cardiac Monitoring: An order was placed for continuous cardiac monitoring. The monitor shows a rate of 85 bpm with sinus rhythm. Laboratory studies: As stated above and show below. Imaging studies: See below Consultation(s): 1649: I discussed this case with Dr. Barrow who is on-call for stroke neurology at [facility]. 1750: I discussed this case with Michael Brennan who is covering for the [facility] hospitalist group. They will evaluate the patient in the emergency department. Past Med/Surg History Medical History Acid reflux disease Anxiety Asthma Benign neoplasm of colon Bipolar disorder Chronic constipation Chronic lumbar pain Controlled substance agreement signed COPD (chronic obstructive pulmonary disease) Depressive disorder Difficulty reading due to visual problem Dysphagia Fibromyalgia Hearing difficulty Hypertension Irritable bowel syndrome with constipation Left knee pain Lumbar degenerative disc disease Migraine Mixed dyslipidemia Osteoporosis Rhinitis Right hip pain Right shoulder pain Seasonal allergies Shortness of breath Stress incontinence in female Surgical History History of breast augmentation Family History Father , age - 54 Colorectal cancer Daughter Anxiety Denies family history of Ovarian cancer Prostate cancer Myocardial infarction Breast cancer Social History Smoking Status: Former smoker Tobacco Type: Cigarettes Age Started Using Tobacco: 12; Age Quit Using Tobacco: 56; Hx Alcohol Use: No Hx Substance Use: No Preferred Language: Chilean Communication Ability: Effective Visual Impairment: No Limitations Hearing Ability: Normal Beliefs That Will Affect Care: None Current Living Situation: Alone current occupational status: retired Feels Safe at Home: Yes Dental Care, Regularly: No Physical Activity Frequency: 1-2 Times per Week Seatbelt Use: always Sunscreen Use: No Allergies Allergies Allergy/AdvReac Type Severity Reaction Status Date / Time nitrofurantoin Allergy Intermediate Severe Verified 07/05/20 17:44 [From Macrobid] Vomitting Bactrim Allergy Unknown UNKNOWN Unverified 04/13/17 11:29 REACTION Iodinated Contrast Media Allergy Unknown ITCHY, Verified 07/05/20 17:44 HEADACHE,SCRATCHY THROAT,SOB Macrolide Antibiotics Allergy Unknown ITCHING Verified 07/05/20 17:44 NSAIDS (Non-Steroidal Allergy Unknown CHEST PAIN Unverified 07/05/20 17:44 Anti-Inflamma Quinolones Allergy Unknown UNKNOWN Verified 07/05/20 17:44 shellfish derived Allergy Unknown HEADACHES,RASH Verified 07/05/20 17:44 ITCHY sulfamethoxazole Allergy Unknown UNKNOWN Unverified 07/05/20 17:44 REACTION tramadol Allergy Unknown UNKNOWN Unverified 07/05/20 17:44 REACTION trimethoprim Allergy Unknown UNKNOWN Unverified 07/05/20 17:44 REACTION clarithromycin [From Biaxin] Allergy Unknown Unverified 07/05/20 17:44 diclofenac Allergy Unknown Unverified 07/05/20 17:44 propoxyphene AdvReac Intermediate N/V Verified 07/05/20 17:44 acetaminophen AdvReac Mild FEELS Verified 07/05/20 17:44 TINGLING-FEELS WEIRD diphenhydramine AdvReac Mild "Gets hot." Verified 07/05/20 17:44 oxycodone AdvReac Mild ITCHING A Verified 07/05/20 17:44 LITTLE-TAKING NOW Cephalosporins AdvReac Unknown TROUBLE Verified 07/05/20 17:44 BREATHING,NAUSEA AND VOMITING morphine AdvReac Unknown DYSPEPSIA Unverified 07/05/20 17:44 Iodide Allergy Unknown UNKNOWN Uncoded 07/05/20 17:44 REACTION Home Meds Home Medications Medication Instructions Recorded Confirmed azelastine 137 mcg INTRANASAL BID PRN 07/05/20 07/05/20 Previous Rx's Medication Instructions Recorded olopatadine 0.2 % eye drops 1 drops OP DAILY #2.5 ml 06/04/19 albuterol sulfate 2.5 mg INH .COMPLEX PRN #75 ml 07/24/19 lactulose 10 gram/15 mL oral 30 gm PO BID PRN 30 Days #1892 ml 08/29/19 solution linaclotide 290 mcg capsule 290 mcg PO DAILY #30 cap 08/29/19 promethazine 25 mg tablet 25 mg PO Q12H PRN #30 tab 10/29/19 montelukast 10 mg tablet 10 mg PO QPM #30 tab 02/03/20 ipratropium 20 mcg-albuterol 100 1 puff INHALATION QID #4 g MDD 6 02/12/20 mcg/actuation mist for inhalation INHALATIONS/24 HOURS alendronate 70 mg tablet 70 mg PO WEEKLY #4 tab 02/25/20 apixaban 5 mg tablet 5 mg PO BID #60 tab 03/02/20 clopidogrel 75 mg tablet 75 mg PO DAILY #30 tab 03/09/20 rosuvastatin 40 mg tablet 40 mg PO DAILY #90 tab 04/28/20 amitriptyline 25 mg tablet 25 mg PO DAILY #30 tab 05/07/20 pantoprazole 40 mg tablet,delayed 40 mg PO BID #60 tab 05/07/20 release loratadine 10 mg tablet 10 mg PO DAILY #30 tab 05/13/20 diclofenac sodium 1 % topical gel 4 g TOP QID #100 gm 05/19/20 alprazolam 0.5 mg tablet 0.5 mg PO BID #60 tab 06/29/20 fentanyl 75 mcg/hr transdermal 1 patch TD Q72H #10 ea 07/01/20 patch oxycodone 10 mg tablet 10 mg PO TID #90 tab 07/01/20 Results & Data (ED) Vital Signs Vital Signs - 24 hr 07/05/20 16:56 07/05/20 17:29 07/05/20 17:40 Temperature 37.1 C Temperature Source Oral Pulse Rate 67 Pulse Rate [Right Finger] 98 H 70 Respiratory Rate 21 20 12 Respiratory Effort / Characteristics Non-Labored Non-Labored Respiratory Depth Normal Normal Respiratory Pattern Regular Blood Pressure 139/82 Blood Pressure [Left Arm] 108/83 129/80 Blood Pressure Mean 101 Blood Pressure Mean [Left Arm] 91 96 Blood Pressure Position [Left Arm] Pulse Oximetry 98 99 98 Oxygen Delivery Method Room Air Room Air Room Air Sepsis Recent Fever Within 48 Hours No Sepsis New/Unexplained Change in Mental Status N/A Sepsis Action Taken by Nursing No Action Required 07/05/20 17:53 07/05/20 18:18 07/05/20 18:38 Temperature Temperature Source Pulse Rate Pulse Rate [Right Finger] 74 71 75 Respiratory Rate 22 15 17 Respiratory Effort / Characteristics Respiratory Depth Respiratory Pattern Blood Pressure Blood Pressure [Left Arm] 125/86 146/38 H 116/84 Blood Pressure Mean Blood Pressure Mean [Left Arm] 99 74 94 Blood Pressure Position [Left Arm] Lying Pulse Oximetry 99 98 99 Oxygen Delivery Method Room Air Room Air Sepsis Recent Fever Within 48 Hours Sepsis New/Unexplained Change in Mental Status Sepsis Action Taken by Fpc Medications Current Medication List: was personally reviewed by me Laboratory Data Attestation: I reviewed the patient's lab results. Result diagrams: 07/05/20 16:58 07/05/20 16:58 Lab Results 07/05/20 07/05/20 07/05/20 Range/Units 16:56 16:58 16:58 WBC 7.24 (4.8-10.8) K/uL RBC 4.61 (4.2-5.4) M/uL Hgb 12.9 (12.0-16.0) g/dL POC Hgb (12.0-16.0) g/dl Hct 39.8 (37-47) % POC Hct (37-47) % MCV 86.3 (80-100) fL MCH 28.0 (25-34) pg MCHC 32.4 (32-36) g/dL RDW Std Deviation 46.2 (36.4-46.3) fL RDW Coeff of Chuck 14.6 H (11.5-14.5) % Plt Count 245 (130-400) K/uL MPV 10.8 H (7.4-10.4) fL Immature Gran % (Auto) 0.0 % Neut % (Auto) 61.5 % Lymph % (Auto) 26.9 % Th[place]morton % (Auto) 8.8 % Eos % (Auto) 2.5 % Baso % (Auto) 0.3 % Neut # (Auto) 4.45 (1.4-6.5) K/uL Lymph # (Auto) 1.95 (1.2-3.4) K/uL [place]morton # (Auto) 0.64 H (0.11-0.59) K/uL Eos # (Auto) 0.18 (0-0.5) K/uL Baso # (Auto) 0.02 (0-0.2) K/uL Immature Gran # (Auto) 0.00 (0.00-0.02) K/uL PT 10.9 (9.0-12.0) Seconds INR 1.0 (0.9-1.1) APTT 27.6 (21.0-31.0) Seconds PTT Ratio 1.0 POC Sodium (135-144) mmol/L Sodium (136-145) mmol/L POC Potassium (3.3-5.0) mmol/L Potassium (3.5-5.1) mmol/L POC Chloride (101-112) mmol/L Chloride (98-107) mmol/L Carbon Dioxide (21-32) mmol/L POC Total CO2 (24-31) mmol/L Anion Gap (3-11) POC Anion Gap (16-25) mmol/L POC BUN (7-18) mg/dl BUN (7-18) mg/dl Creatinine (0.6-1.2) mg/dl POC Creatinine (0.6-1.3) mg/dl Est Cr Clr Drug Dosing ml/min Est GFR ( Amer) Est GFR (Non-Af Amer) BUN/Creatinine Ratio (10-20) Glucose (70-99) mg/dl POC Glucose 108 H (70-99) mg/dl POC Glucose (other) (70-99) mg/dl Calcium (8.5-10.1) mg/dl POC Ioniz Calcium Mian (1.12-1.32) mmol/l Magnesium (1.8-2.4) mg/dl Total Bilirubin (0.2-1) mg/dl AST (15-37) U/L ALT (12-78) U/L Alkaline Phosphatase (45-117) U/L Troponin I (0-0.045) ng/ml Total Protein (6.4-8.2) gm/dl Albumin (3.4-5.0) gm/dl Globulin (2.5-4.0) gm/dl Albumin/Globulin Ratio (0.9-2) COVID-19 Eval Order SARS-CoV-2, RNA, NAAT (NEGATIVE) 07/05/20 07/05/20 07/05/20 Range/Units 16:58 17:02 18:01 WBC (4.8-10.8) K/uL RBC (4.2-5.4) M/uL Hgb (12.0-16.0) g/dL POC Hgb 13.3 (12.0-16.0) g/dl Hct (37-47) % POC Hct 39 (37-47) % MCV (80-100) fL MCH (25-34) pg MCHC (32-36) g/dL RDW Std Deviation (36.4-46.3) fL RDW Coeff of Chuck (11.5-14.5) % Plt Count (130-400) K/uL MPV (7.4-10.4) fL Immature Gran % (Auto) % Neut % (Auto) % Lymph % (Auto) % Th[place]morton % (Auto) % Eos % (Auto) % Baso % (Auto) % Neut # (Auto) (1.4-6.5) K/uL Lymph # (Auto) (1.2-3.4) K/uL [place]morton # (Auto) (0.11-0.59) K/uL Eos # (Auto) (0-0.5) K/uL Baso # (Auto) (0-0.2) K/uL Immature Gran # (Auto) (0.00-0.02) K/uL PT (9.0-12.0) Seconds INR (0.9-1.1) APTT (21.0-31.0) Seconds PTT Ratio POC Sodium 139 (135-144) mmol/L Sodium 139 (136-145) mmol/L POC Potassium 3.9 (3.3-5.0) mmol/L Potassium 3.9 (3.5-5.1) mmol/L POC Chloride 105 (101-112) mmol/L Chloride 108 H (98-107) mmol/L Carbon Dioxide 27 (21-32) mmol/L POC Total CO2 25 (24-31) mmol/L Anion Gap 4.0 (3-11) POC Anion Gap 14.0 L (16-25) mmol/L POC BUN 17 (7-18) mg/dl BUN 17 (7-18) mg/dl Creatinine 1.54 H (0.6-1.2) mg/dl POC Creatinine 1.5 H (0.6-1.3) mg/dl Est Cr Clr Drug Dosing 33.1 ml/min Est GFR ( Amer) 41.8 Est GFR (Non-Af Amer) 36.0 BUN/Creatinine Ratio 10.8 (10-20) Glucose 110 H (70-99) mg/dl POC Glucose (70-99) mg/dl POC Glucose (other) 112 H (70-99) mg/dl Calcium 8.7 (8.5-10.1) mg/dl POC Ioniz Calcium Mian 1.21 (1.12-1.32) mmol/l Magnesium 2.4 (1.8-2.4) mg/dl Total Bilirubin 0.5 (0.2-1) mg/dl AST 9 L (15-37) U/L ALT 15 (12-78) U/L Alkaline Phosphatase 95 (45-117) U/L Troponin I < 0.015 (0-0.045) ng/ml Total Protein 7.3 (6.4-8.2) gm/dl Albumin 3.5 (3.4-5.0) gm/dl Globulin 3.8 (2.5-4.0) gm/dl Albumin/Globulin Ratio 0.9 (0.9-2) COVID-19 Eval [facility] SARS-[facility]-2, RNA, NAAT (NEGATIVE) 07/05/20 Range/Units 18:01 WBC (4.8-10.8) K/uL RBC (4.2-5.4) M/uL Hgb (12.0-16.0) g/dL POC Hgb (12.0-16.0) g/dl Hct (37-47) % POC Hct (37-47) % MCV (80-100) fL MCH (25-34) pg MCHC (32-36) g/dL RDW Std Deviation (36.4-46.3) fL RDW Coeff of Chuck (11.5-14.5) % Plt Count (130-400) K/uL MPV (7.4-10.4) fL Immature Gran % (Auto) % Neut % (Auto) % Lymph % (Auto) % [place]morton % (Auto) % Eos % (Auto) % Baso % (Auto) % Neut # (Auto) (1.4-6.5) K/uL Lymph # (Auto) (1.2-3.4) K/uL [place]morton # (Auto) (0.11-0.59) K/uL Eos # (Auto) (0-0.5) K/uL Baso # (Auto) (0-0.2) K/uL Immature Gran # (Auto) (0.00-0.02) K/uL PT (9.0-12.0) Seconds INR (0.9-1.1) APTT (21.0-31.0) Seconds PTT Ratio POC Sodium (135-144) mmol/L Sodium (136-145) mmol/L POC Potassium (3.3-5.0) mmol/L Potassium (3.5-5.1) mmol/L POC Chloride (101-112) mmol/L Chloride (98-107) mmol/L Carbon Dioxide (21-32) mmol/L POC Total CO2 (24-31) mmol/L Anion Gap (3-11) POC Anion Gap (16-25) mmol/L POC BUN (7-18) mg/dl BUN (7-18) mg/dl Creatinine (0.6-1.2) mg/dl POC Creatinine (0.6-1.3) mg/dl Est Cr Clr Drug Dosing ml/min Est GFR ( Amer) Est GFR (Non-Af Amer) BUN/Creatinine Ratio (10-20) Glucose (70-99) mg/dl POC Glucose (70-99) mg/dl POC Glucose (other) (70-99) mg/dl Calcium (8.5-10.1) mg/dl POC Ioniz Calcium Mian (1.12-1.32) mmol/l Magnesium (1.8-2.4) mg/dl Total Bilirubin (0.2-1) mg/dl AST (15-37) U/L ALT (12-78) U/L Alkaline Phosphatase (45-117) U/L Troponin I (0-0.045) ng/ml Total Protein (6.4-8.2) gm/dl Albumin (3.4-5.0) gm/dl Globulin (2.5-4.0) gm/dl Albumin/Globulin Ratio (0.9-2) COVID-19 Eval Order SARS-CoV-2, RNA, NAAT NEGATIVE (NEGATIVE) Imaging Data Radiologist's Impression: Patient: JANE SALAZAR Date: 07/05/20MR#: [id number] ID:[id number]: [id number] Date: 1960[facility] Zip: [place], [place] [address]Tup: 60Location: EDSex: FRoom/Bed:Att Phy:Diagnosis: STROKE SYMPTOMSPri Phy: AlexanderEmma wasserman, MDService Date: 07/05/20Fa Phy:Interpreting Phy: Tramaine Barrios MDAdmit Phy: Ordering Phy: Wali Arora, cc: ~ CT head/brain wo con CLINICAL HISTORY: Stroke Like Symptoms COMPARISON STUDY: No previous studies for comparison. TECHNIQUE: Axial CT of the brain is performed from the vertex to the skull base. IV contrast was not administered for this examination. A dose lowering technique was utilized adhering to the principles of ALARA. CT DOSE: 614.27 mGy.cm FINDINGS: No intra or extra-axial mass lesions are visualized. There is no CT evidence of acute cortical infarction. There is no evidence of midline shift. There is no acute hemorrhage. No calvarial fractures are visualized. There is a left occipital lobe infarct, likely late subacute or chronic. There is no evidence of pathologic ventricular dilatation. There is no evidence of acute sinusitis IMPRESSION: 1. 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 2. No acute intracranial findings ACT 112: Negative or not required by law. Electronically signed by: Tramaine Barrios M.D. 07/05/2020 4:53 PM Dictated: 07/05/201649Transcribed: 07/05/201649 Blood Pressure Blood Pressure Findings: Normal blood pressure Discharge Plan Visit Data Chief Complaint: Stroke Alert Stated Complaint: STROKE SYMPTOMS ED Provider: Wali Arora Discharge Problem: Stroke-like symptoms, Weakness Patient Disposition: Being Evaluated by Hospitalist Condition: Good Forms Stand Alone Forms: My [facility] Prescriptions Prescriptions: No Action olopatadine 0.2 % drops 1 drops OP DAILY Qty: 2.5 RF: 5 promethazine 25 mg tablet 25 mg PO Q12H PRN (Reason: migraine headache) Qty: 30 RF: 5 fluticasone furoate-vilanterol [Breo Ellipta] 100-25 mcg/dose blister with device 1 inh inhalation DAILY RF: 0 Combivent Respimat 20-100 mcg/actuation mist 1 puff inhalation QID MDD 6 INHALATIONS/24 HOURS Qty: 4 RF: 5 alendronate 70 mg tablet 70 mg PO WEEKLY Qty: 4 RF: 5 Eliquis 5 mg tablet 5 mg PO BID Qty: 60 RF: 5 clopidogrel 75 mg tablet 75 mg PO DAILY Qty: 30 RF: 5 rosuvastatin 40 mg tablet 40 mg PO DAILY Qty: 90 RF: 1 loratadine 10 mg tablet 10 mg PO DAILY Qty: 30 RF: 5 diclofenac sodium [Voltaren] 1 % gel 4 g TOP QID Qty: 100 RF: 2 alprazolam 0.5 mg tablet 0.5 mg PO BID Qty: 60 RF: 0 fentanyl 75 mcg/hr patch 72 hour 1 patch TD Q72H Qty: 10 RF: 0 oxycodone 10 mg tablet 10 mg PO TID Qty: 90 RF: 0 montelukast [Singulair] 10 mg tablet 10 mg PO QPM Qty: 30 RF: 5 pantoprazole 40 mg tablet,delayed release (DR/EC) 40 mg PO BID Qty: 60 RF: 1 amitriptyline 25 mg tablet 25 mg PO DAILY Qty: 30 RF: 5 albuterol sulfate 2.5 mg /3 mL (0.083 %) solution for nebulization 2.5 mg INH .COMPLEX PRN (Reason: shortness of breath or wheezing) Qty: 75 RF: 3 linaclotide 290 mcg capsule 290 mcg PO DAILY Qty: 30 RF: 5 lactulose 10 gram/15 mL solution 30 gm PO BID PRN (Reason: constipation) 30 Days Qty: 1892 RF: 4 azelastine 137 mcg (0.1 %) aerosol,spray 137 mcg intranasal BID PRN (Reason: Nasal Congestion) RF: 0 Referrals Referrals: Emma Alexander MD [Primary Care Provider] -
[2020-07-05 17:26] LABS: Basophils # (auto) 0.02 K/uL (0-0.2); Basophils % (auto) 0.3 %; Eosinophils # (auto) 0.18 K/uL (0-0.5); Eosinophils % (auto) 2.5 %; Hematocrit (blood only) 39.8 % (37-47); Hemoglobin 12.9 g/dL (12.0-16.0); Lymphocytes # (auto) 1.95 K/uL (1.2-3.4); Lymphocytes % (auto) 26.9 %; Mean Corpuscular Hgb Conc 32.4 g/dL (32-36); Mean Corpuscular Volume 86.3 fL (80-100); Mean Platelet Volume 10.8 fL (7.4-10.4); Monocytes # (auto) 0.64 K/uL (0.11-0.59); Monocytes % (auto) 8.8 %; Neutrophils # (auto) 4.45 K/uL (1.4-6.5); Neutrophils % (auto) 61.5 %; Platelet Count 245 K/uL (130-400); RDW Coefficient of Variation 14.6 % (11.5-14.5); RDW Standard Deviation 46.2 fL (36.4-46.3); Red Blood Count 4.61 M/uL (4.2-5.4); White Blood Count 7.24 K/uL (4.8-10.8)
[2020-07-05 17:37] LABS: Alanine Aminotransferase 15 U/L (12-78); Albumin Level 3.5 gm/dl (3.4-5.0); Aspartate Aminotransferase 9 U/L (15-37); BUN Creatinine Ratio 10.8 (10-20); Blood Urea Nitrogen 17 mg/dl (7-18); Calcium 8.7 mg/dl (8.5-10.1); Carbon Dioxide 27 mmol/L (21-32); Chloride 108 mmol/L (98-107); Creatinine Clr Calc Pharmacy 33.1 ml/min; Est GFR (African American) 41.8; Glucose 110 mg/dl (70-99); Magnesium 2.4 mg/dl (1.8-2.4); Potassium 3.9 mmol/L (3.5-5.1); Sodium 139 mmol/L (136-145)
[2020-07-05 17:42] LABS: Albumin Globulin Ratio 0.9 (0.9-2); Alkaline Phosphatase 95 U/L (45-117); Bilirubin,Total 0.5 mg/dl (0.2-1); Globulin 3.8 gm/dl (2.5-4.0); Total Protein 7.3 gm/dl (6.4-8.2); Troponin I < 0.015 ng/ml (0-0.045)
[2020-07-05 17:46] LABS: Partial Thromboplastin Time 27.6 Seconds (21.0-31.0); Prothrombin Time 10.9 Seconds (9.0-12.0)
--- NOTE | 2020-07-05 18:28 | History & Physical Report ---
Date of Service July 05, 2020 Assessment & Plan (1) History of stroke: We will admit the patient to the hospital for further evaluation. As previously stated telemetry neurology was performed with Dr. Barrow at [facility] and the patient was not felt to be a candidate for TPA. Patient's ensuing evaluation will consist of the following: We will maintain the patient on her antiplatelet therapy in the form of Plavix and continue anticoagulation in the form of Eliquis Due to her history of PFO closure we will check a cardiac echo. We will check an MRI of her brain as well as an MRA of her neck We will obtain physical therapy, Occupational Therapy, and speech evaluation Obtain a neurology consultation Patient has issues with chronic pain she takes multiple pain medications. I will check a toxicology screen. We will ask case management to see this patient to ensure safe disposition at time of discharge The patient is on Eliquis no further form of DVT prevention be required I discussed CODE STATUS with this patient and she notes an event of cardiopulmonary arrest she wishes to be a level 1 full code (2) Acute kidney injury: Patient's creatinine is noted be elevated from prior values. We will treat this by gently hydrating her with IV fluids and follow serial labs. Nephrotoxic medications will be avoided. (3) Anxiety: Continue Xanax, consider adding on SSRI for panic disorder Continue amitriptyline (4) Migraine: Has a history of migraines Continue amitriptyline Follow-up with neurology (5) Asthma: Continue albuterol and ipratropium No acute issues (6) Mixed dyslipidemia: Continue statin History of Present Illness Chief Complaint: I think I had another stroke Primary Care Provider: Emma Alexander MD This is a 60-year-old female who has a previous history of stroke in the past. Her records were reviewed and her most recent stroke was in July 12, 2019. At that time she was in [place], [place] visiting family and received care at a facility in that town. Was were reviewed and at that time patient complained of visual disturbance as well as right-sided numbness. The work-up she underwent at that hospital included an echocardiogram that showed a 60% ejection fraction and a PFO closure device. No valvular vegetations were noted. There is no evidence of residual ASD. He did undergo an MRI of the brain which showed no new strokes however an old left occipital stroke was noted. She also had an MRA which showed no stenosis of the carotid or vertebral arteries bilaterally. 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 She was then instructed to follow-up with physicians in her home town. Since that episode the patient is followed with her primary care physician. She presented to the emergency department today because at approximately 3:00 she developed some right-sided visual loss which lasted about 15 minutes. Shortly thereafter she felt as though she had tongue numbness as well as right-sided numbness and weakness in her arm and leg. EMS was summoned and she was brought to the emergency department. I was asked to see her at approximately 6:00 PM. By this time all of her symptoms have completely resolved. At present time she only complains of headache. I did discuss with the treating emergency room physician who called a stroke alert and did telemetry neurology with Dr. Barrow at [facility] and has the patient says that she takes dual antiplatelet therapy as well as Eliquis was not felt to be a candidate for TPA. Since arrival to the emergency department patient underwent a CT scan of her head that showed no acute hemorrhage however a left occipital lobe infarct was noted that was felt to be subacute or chronic in nature. CT angiogram could not be performed due to contrast allergy.EKG was performed that showed sinus rhythm without acute ischemic changes. CBC was performed that showed her white blood cell count hemoglobin, hematocrit, and platelet count were all within normal range. Coagulation studies were all within normal range. Electrolytes revealed sodium and potassium are within normal range her BUN was noted be within normal range liver her creatinine was noted to 1.5 which was elevated from baseline values of 0.9. A Covid test has been ordered and is pending. Visit with the patient at bedside at approximately 6:00 PM as stated. Time of my interview she was only complaining of a headache and her previously noted neurologic symptoms have resolved. Prior to this episode she says she was in her usual state of health. She has not had any recent fevers, shakes, or chills. She did not have any palpitations or chest pain preceding this episode. She denies cough or shortness of breath. Patient states that she did not fall and did not strike her head or lose consciousness. The time of my interview she was resting comfortably in bed in no distress. Allergies Allergy/AdvReac Type Severity Reaction Status Date / Time nitrofurantoin Allergy Intermediate Severe Verified 07/05/20 17:44 [From Macrobid] Vomitting Bactrim Allergy Unknown UNKNOWN Unverified 04/13/17 11:29 REACTION Iodinated Contrast Media Allergy Unknown ITCHY, Verified 07/05/20 17:44 HEADACHE,SCRATCHY THROAT,SOB Macrolide Antibiotics Allergy Unknown ITCHING Verified 07/05/20 17:44 NSAIDS (Non-Steroidal Allergy Unknown CHEST PAIN Unverified 07/05/20 17:44 Anti-Inflamma Quinolones Allergy Unknown UNKNOWN Verified 07/05/20 17:44 shellfish derived Allergy Unknown HEADACHES,RASH Verified 07/05/20 17:44 ITCHY sulfamethoxazole Allergy Unknown UNKNOWN Unverified 07/05/20 17:44 REACTION tramadol Allergy Unknown UNKNOWN Unverified 07/05/20 17:44 REACTION trimethoprim Allergy Unknown UNKNOWN Unverified 07/05/20 17:44 REACTION clarithromycin [From Biaxin] Allergy Unknown Unverified 07/05/20 17:44 diclofenac Allergy Unknown Unverified 07/05/20 17:44 propoxyphene AdvReac Intermediate N/V Verified 07/05/20 17:44 acetaminophen AdvReac Mild FEELS Verified 07/05/20 17:44 TINGLING-FEELS WEIRD diphenhydramine AdvReac Mild "Gets hot." Verified 07/05/20 17:44 oxycodone AdvReac Mild ITCHING A Verified 07/05/20 17:44 LITTLE-TAKING NOW Cephalosporins AdvReac Unknown TROUBLE Verified 07/05/20 17:44 BREATHING,NAUSEA AND VOMITING morphine AdvReac Unknown DYSPEPSIA Unverified 07/05/20 17:44 Iodide Allergy Unknown UNKNOWN Uncoded 07/05/20 17:44 REACTION Home Medications Medication Instructions Recorded Confirmed Type olopatadine 0.2 % eye drops 1 drops OP DAILY #2.5 ml 06/04/19 07/05/20 Rx albuterol sulfate 2.5 mg INH .COMPLEX PRN #75 ml 07/24/19 07/05/20 Rx lactulose 10 gram/15 mL oral 30 gm PO BID PRN 30 Days #1892 ml 08/29/19 07/05/20 Rx solution linaclotide 290 mcg capsule 290 mcg PO DAILY #30 cap 08/29/19 07/05/20 Rx promethazine 25 mg tablet 25 mg PO Q12H PRN #30 tab 10/29/19 07/05/20 Rx montelukast 10 mg tablet 10 mg PO QPM #30 tab 02/03/20 07/05/20 Rx ipratropium 20 mcg-albuterol 100 1 puff INHALATION QID #4 g MDD 6 02/12/20 07/05/20 Rx mcg/actuation mist for inhalation INHALATIONS/24 HOURS alendronate 70 mg tablet 70 mg PO WEEKLY #4 tab 02/25/20 07/05/20 Rx apixaban 5 mg tablet 5 mg PO BID #60 tab 03/02/20 07/05/20 Rx clopidogrel 75 mg tablet 75 mg PO DAILY #30 tab 03/09/20 07/05/20 Rx rosuvastatin 40 mg tablet 40 mg PO DAILY #90 tab 04/28/20 07/05/20 Rx amitriptyline 25 mg tablet 25 mg PO DAILY #30 tab 05/07/20 07/05/20 Rx pantoprazole 40 mg tablet,delayed 40 mg PO BID #60 tab 05/07/20 07/05/20 Rx release loratadine 10 mg tablet 10 mg PO DAILY #30 tab 05/13/20 07/05/20 Rx diclofenac sodium 1 % topical gel 4 g TOP QID #100 gm 05/19/20 07/05/20 Rx alprazolam 0.5 mg tablet 0.5 mg PO BID #60 tab 06/29/20 07/05/20 Rx fentanyl 75 mcg/hr transdermal 1 patch TD Q72H #10 ea 07/01/20 07/05/20 Rx patch oxycodone 10 mg tablet 10 mg PO TID #90 tab 07/01/20 07/05/20 Rx azelastine 137 mcg INTRANASAL BID PRN 07/05/20 07/05/20 History Past Med/Surg History Medical History Acid reflux disease Anxiety Asthma Benign neoplasm of colon Bipolar disorder Chronic constipation Chronic lumbar pain Controlled substance agreement signed COPD (chronic obstructive pulmonary disease) Depressive disorder Difficulty reading due to visual problem Dysphagia Fibromyalgia Hearing difficulty Hypertension Irritable bowel syndrome with constipation Left knee pain Lumbar degenerative disc disease Migraine Mixed dyslipidemia Osteoporosis Rhinitis Right hip pain Right shoulder pain Seasonal allergies Shortness of breath Stress incontinence in female Surgical History History of breast augmentation Family History Father , age - 54 Colorectal cancer Daughter Anxiety Denies family history of Ovarian cancer Prostate cancer Myocardial infarction Breast cancer Social History Smoking Status: Never smoker Tobacco Type: Cigarettes Age Started Using Tobacco: 12; Age Quit Using Tobacco: 56; Second Hand Exposure: No; Hx Alcohol Use: No Hx Substance Use: No Preferred Language: Azeri Communication Ability: Effective Visual Impairment: No Limitations Hearing Ability: Normal Health Administration Teacher Required: No Beliefs That Will Affect Care: None Current Living Situation: Alone current occupational status: retired Feels Safe at Home: Yes Dental Care, Regularly: No Physical Activity Frequency: 1-2 Times per Week Seatbelt Use: always Sunscreen Use: No Assistive Devices: Denture - Upper Review of Systems Constitutional: no fever, no chills and no fatigue Eyes: + blind spots (Right eye this is resolved and lasted 15 minutes); no diplopia Ear, Nose, Mouth, Throat: no tinnitus and no dizziness Respiratory: no cough and no dyspnea Cardiovascular: no chest pain, no palpitations and no syncope Gastrointestinal: no abdominal pain, no nausea and no vomiting Genitourinary: no dysuria Musculoskeletal: + back pain (Chronic) Integumentary: no rash Neurologic: + localized weakness, + numbness and + headache(s) Physical Exam Constitutional: well developed and well nourished; no acute distress Eyes: PERRL; no conjunctival abnormality Eyebrow piercing noted in the lateral aspect of her right eyebrow ENMT: Ears: no hearing impairment and no TM abnormality Neck: trachea midline No carotid bruits. Respiratory: normal respiratory effort, lungs clear to auscultation Cardiovascular: Rate/Rhythm: regular rate and regular rhythm Gastrointestinal (Abdomen): Percussion/Palpation: abdomen soft; abdomen nontender Musculoskeletal: No calf tenderness, no gross orthopedic abnormalities Skin: no rashes, warm and dry Neurologic: Patient was alert and oriented x3. She was able to move all 4 extremities and follow simple commands. 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 Cranial nerves II through XII were intact with the exception of the left facial nerve is the patient exhibited a slight left facial droop. Her speech was not garbled and coherent. Psychiatric: Orientation: alert and oriented x 3 Affect: + anxious affect Results & Data Results & Data ([facility]) Vital Signs (Past 12 Hours) Vital Signs Temp Pulse Pulse Resp BP BP Pulse Ox 07/05/20 17:53 74 22 125/86 99 07/05/20 17:40 70 12 129/80 98 07/05/20 17:29 98 H 20 108/83 99 07/05/20 16:56 37.1 C 67 21 139/82 98 Supervising Physician Co-Signing Physician Notes PA Supervision Note: I personally saw and examined the patient. I verified all dumont points and agree with MARANDA Nichols with the following exceptions and/or additions: This patient is a 60-year-old female with a history of prothrombin 3 gene mutation, TIA/CVA, migraines, depression with anxiety, fibromyalgia, GERD, asthma, chronic lower back pain on opioids, and IBS, who presents to the ER with right-sided weakness and numbness as well as blurry vision on the right with associated headache. All symptoms are completely resolved during her time in the ER and she had a telemetry stroke neuro consult that did not advise giving TPA as she is already on Eliquis as well as dual antiplatelet therapy and her symptoms were resolving. She reports to me that these are the exact symptoms she has every time she has "one of my strokes." When I brought up that she might have complex migraines, she was adamant that she was told that she did not have complex migraines and did indeed have a stroke. I acknowledged that she has obviously had a stroke on her brain imaging, but suggested that perhaps she also has complex migraines. She does not follow with a neurologist locally. She reports significant anxiety as well as tension in her neck for which she previously received steroid injections. She thinks that her anxiety and neck pain also contribute to "my strokes." History and ROS reviewed as above Vitals reviewed Gen: AAOx3, NAD HEENT: Anicteric sclerae, EOMI, PERRLA CV: RRR no mgr nl S1S2 Pulm: CTAB no wcr Abd: +BS soft NT ND no masses or hernias Ext: No edema, no calf tenderness Skin: No rashes, warm/dry Neuro: Full strength throughout, CN II through XII intact except for decreased sensation to light touch in the V2 distribution on the right Psych: Mood is anxious, denies SI but reports a previous history of suicide attempt in her 30s Laboratory values reviewed Imaging reviewed ECG reviewed which shows normal sinus rhythm, rate 70, no ischemic changes This patient is a 60-year-old female with history noted as above, here with right-sided weakness and numbness as well as vision loss which is now resolved with associated posterior significant headache. No intracranial hemorrhage seen on CT and with history of old left occipital lobe stroke. Previous imaging studies for a very similar episode 1 year ago were reviewed and negative for new stroke or large vessel occlusion -Repeat stroke work-up here, however I strongly suspect that she is having complex/hemiplegic migraines given that she has the exact same symptoms every time that she has 1 of these episodes and has had multiple of these episodes over the years. Appreciate any further input from neurology Continue aspirin, Plavix, Eliquis, statin Neuro checks PT/OT/speech therapy consultations Question if should be started on verapamil for migraine prevention versus Topamax PG Care Time/CCT Total # of Minutes Spent Total Time Spent with Patient: Total time spent is greater than 50% in coordination of care (as documented) at patient's floor/unit and/or counseling patient: Coding Level of Care Code 93835 OBS Care - Level 3 Diagnoses History of stroke Z86.73 Acute kidney injury N17.9 Anxiety F41.9 Migraine G43.909 Asthma J45.909 Mixed dyslipidemia E78.2
[2020-07-05] MEDS ORDERED: ALBUTEROL 0.083% NEBU SOLN 3 ML VIAL INH PRN (19:31)
[2020-07-05] MEDS ORDERED: PHARMACIST DISCHARGE MED REC CONSULT PRN (19:31)
[2020-07-05] MEDS ORDERED: ACETAMINOPHEN 325 MG TAB PO PRN (19:31)
[2020-07-05] MEDS ORDERED: PROMETHAZINE HCL 25 MG TAB PO PRN (19:31)
[2020-07-05] MEDS ORDERED: ALENDRONATE SODIUM 70 MG TAB PO SCH (19:31)
[2020-07-05] MEDS: Ipratropium HFA Inhaler (Combivent Respimat P&T Subs) INH SCH (20:01)
[2020-07-05] MEDS: Albuterol HFA 8 GM Inhaler (Combivent Respimat P&T Subs) INH SCH (20:02)
[2020-07-05] MEDS: oxyCODONE HCL IR 5 MG TAB (IMMEDIATE RELEASE) PO SCH (20:40)
[2020-07-05] MEDS: APIXABAN 5 MG TABLET PO SCH (20:40)
[2020-07-05] MEDS: PANTOprazole 40 MG TAB PO SCH (20:41)
[2020-07-05] MEDS: DICLOFENAC SOD 1% GEL 100 GM TUBE EXT SCH (20:41)
[2020-07-05 20:47] LABS: Amphetamines+Metham, Urine Neg (Neg); Barbiturates, Urine Neg (Neg); Benzodiazepine, Urine Pos (Neg); Cocaine, Urine Neg (Neg); MDMA (Ecstacy), Urine Neg (Neg); Methadone, Urine Neg (Neg); Opiate, Urine Neg (Neg); Phencyclidine, Urine Neg (Neg)
[2020-07-05] MEDS ORDERED: MONTELUKAST SODIUM 10 MG TABLET PO SCH (21:00)
[2020-07-05] MEDS ORDERED: fentaNYL 75 MCG/HR TDSY TD SCH (21:00)
[2020-07-05] MEDS ORDERED: IPRATROPIUM BROMIDE/ALBUTEROL respimat INH INH SCH (21:00)
[2020-07-05] MEDS: SODIUM CHLORIDE 0.9% 1000ML 1,000 ML IV SCH (22:31)
[2020-07-05] MEDS: ALPRAZolam 0.5 MG TABLET PO SCH (22:31)
[2020-07-06] MEDS: CHECK fentaNYL PATCH PLACEMENT SCH ×3 (00:14→15:43)
--- NOTE | 2020-07-06 06:52 | Magnetic Resonance Report ---
MRI OF THE BRAIN WITHOUT CONTRAST CLINICAL HISTORY: Right eye visual change. Suspected acute stroke. COMPARISON STUDY: Head CT dated 07/05/2020 FINDINGS: Sagittal T1, axial diffusion, proton density and T2 weighted axial, coronal FLAIR, and axial T1-weigh keisha images were acquired. No intra or extra-axial mass lesions are visualized Axial diffusion-weighted images reveal no evidence of acute or subacute infarction. There is no evidence of ventricular dilatation. Proton density T2-weighted and FLAIR images reveal scattered foci of increased T2 signal within the w rhiannon matter, likely on a small vessel basis. There is an old left occipital lobe infarct There are no abnormal flow voids. IMPRESSION: 1. No acute intracranial findings 2. No evidence of acute or subacute infarction 3. No evidence of intracranial mass on this noncontrast study 4. Old left occipital lobe infarct ACT 112: Negative or not required by law. Electronically signed by: Tramaine Barrios M.D. 07/06/2020 6:51 AM
--- NOTE | 2020-07-06 06:55 | Magnetic Resonance Report ---
MRA OF THE INTRACRANIAL CIRCULATION WITHOUT CONTRAST CLINICAL HISTORY: Cerebrovascular accident. COMPARISON STUDY: Head CT performed earlier today. TECHNIQUE: Utilizing a 1.5 Gloria magnet and 3-D [id number] technique, unenhanced MRA of the intra cranial circulation was obtained. FINDINGS: Please note that the MRI of the brain will be reported separately. The bilateral M1, M2, A1 and A2 segments are patent. The posterior circulation is also intact. No central vessel occlusion is noted. No intraluminal thrombus is noted. No dissection or aneurysm within the intracranial vessels is identified. No stenosis is identified. IMPRESSION: Unremarkable MRA of the head. ACT 112: Negative or not required by law. Electronically signed by: Alcon Cuevas M.D. 07/06/2020 6:54 AM
[2020-07-06 07:05] LABS: Estimated Average Glucose 114 mg/dl; Hemoglobin A1C 5.6 % (4.5-5.6)
--- NOTE | 2020-07-06 07:06 | Magnetic Resonance Report ---
MRA OF THE NECK WITHOUT CONTRAST CLINICAL HISTORY: Cerebrovascular accident. COMPARISON STUDY: None. TECHNIQUE: A 1.5 Gloria magnet was utilized. 2-D and 3-D [id number] imaging was performed to obt ain unenhanced MRA of the neck. NASCET criteria were utilized to estimate the degree of carotid sten osis. FINDINGS: This exam is compromised given lack of postcontrast imaging, particularly affecting visuali zation of the origins of the bilateral common carotid and vertebral arteries. However, the bilateral carotid bifurcations are patent. No significant stenosis is identified within the bilateral common ca rotid, cervical internal carotid or vertebral arteries. IMPRESSION: Suboptimal evaluation given lack of postcontrast imaging but no significant stenosis maia ntified within the bilateral common carotid, cervical internal carotid or vertebral arteries. ACT 112: Negative or not required by law. Electronically signed by: Alcon Cuevas M.D. 07/06/2020 7:05 AM
[2020-07-06] MEDS: Albuterol HFA 8 GM Inhaler (Combivent Respimat P&T Subs) INH SCH ×3 (07:09→15:45)
[2020-07-06] MEDS: Ipratropium HFA Inhaler (Combivent Respimat P&T Subs) INH SCH ×3 (07:09→15:44)
[2020-07-06 07:36] LABS: BUN Creatinine Ratio 17.6 (10-20); Creatinine Clr Calc Pharmacy 55.7 ml/min; Est GFR (African American) 67.9; Est GFR (Non-African American) 58.6; Potassium 3.8 mmol/L (3.5-5.1)
[2020-07-06] MEDS ORDERED: CLOPIDOGREL BISULFATE 75 MG TAB PO SCH (09:00)
[2020-07-06] MEDS ORDERED: LINACLOTIDE 290 MCG PO SCH (09:00)
[2020-07-06] MEDS ORDERED: AMITRIPTYLINE HCL 25 MG TAB PO SCH (09:00)
[2020-07-06] MEDS ORDERED: LORATADINE 10 MG TAB PO SCH (09:00)
[2020-07-06] MEDS ORDERED: ROSUVASTATIN CALCIUM 20 MG TAB PO SCH (09:00)
[2020-07-06] MEDS: PANTOprazole 40 MG TAB PO SCH (09:02)
[2020-07-06] MEDS: ALPRAZolam 0.5 MG TABLET PO SCH (09:02)
[2020-07-06] MEDS: oxyCODONE HCL IR 5 MG TAB (IMMEDIATE RELEASE) PO SCH ×2 (09:02→14:37)
[2020-07-06] MEDS: APIXABAN 5 MG TABLET PO SCH (09:02)
--- NOTE | 2020-07-06 09:02 | Neurology Consultation ---
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 The symptoms resolved over several hours and she was left with a nonspecific occipital headache. she has significant anxiety and depression. Today she has no focal neurologic findings, meningeal signs, or encephalopathy. Although I cannot entirely exclude a "TIA", the etiology of the recent event is likely cerebral vasospasm, triggered by anxiety and Hypertension. This will be a form of a migraine. She has a longstanding history of intermittent migraines, much improved in the last decade her life. 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 She has a history of antithrombin 3 deficiency and is on apixaban and clopidogrel. The event of June of 2019 may also have been vasospasm, although I was not present and can't exclude a TIA either. Recommendations: 1. Control blood pressure as you are doing aiming for a mean arterial pressure of 95-100. 2. Continue on same dose of rosuvatatin. 3. Increase activity as able. 4. if she needs medication for blood pressure I would consider verapamil, as it is my drug of choice to prevent vasospasm. 5. She needs better control of anxiety /depression. Consider escitalopram or bupropion. These could be considered as an outpatient , under the direction of her PCP. 6. Awaiting echocardiogram results. Overall, I spent a total of 105 minutes with this case including review of records, review of CT and MRI films, direct evaluation the patient at bedside, and discussing the case with the patient bedside and Dr. Gaston, including differential diagnosis and treatment options. History of Present Illness Reason for Consultation: patient is a 60-year-old, who I was asked to see the request of Dr. Iglesias, for neurologic consultation regarding TIA versus other. Requesting Physician: Dr. Iglesias Attending Physician: Luis E Gaston MD History of Present Illness this is a complicated patient neurologically. Since age 11 the patient has had intermittent migraine headaches. Over the years they have been of varying frequency and consist of a occipital pounding pain with nausea, vomiting, photophobia, and sonophobia. They could last up to several days. Since age 44 they have been nearly as frequent or severe. Tells me that she has not had a significant migraine many years. She will get occasional occipital headaches however that have some nausea and photophobia. At age 44, patient a significant left medial occipital stroke leaving her with some right homonymous hemianopsia. She was found to Antithrombin 3 mutation was put on Coumadin and aspirin. She could not regulate the Coumadin this was discontinued. An echocardiogram at the time found a PFO which was closed surgically. Patient has had chronic issues with pain from cervical spinal stenosis another spinal degenerative disease, fibromyalgia, and her vision issues. She had to retire on disability in her late 40s because of these issues. 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 She is on chronic narcotics and benzodiazepines. In June of 2019 she had an episode of right-sided numbness speech issues vision impairment. Apparently she was in [place], [place] was admitted to their institution. She was diagnosed with a TIA. Apparently MR angiography of the head was unremarkable. MR angiography of the neck showed no significant stenoses. MRI of the brain showed the old left occipital infarct and no new stroke. Echocardiogram was Unremarkable. She has been put on Eliquis and clopidogrel has been on this since. The patient was doing well and on July 05 was down in the lobby of her apartment building changing the decorations on the tree from Gloria to [employer]. About an hour later, at 1530 or so she had the onset of feeling warm and flushed all over. Then she noted her right tongue becoming numb and this traveling to her right face, then arm, then leg. The right arm and leg felt heavy. She had Trouble speaking some, unsteady gait and a little confusion. She also told the EMS she had a very slight headache. She had no headache before or during this. She felt very anxious. EMS had a blood pressure of 139/100 and then 167/100. A little later it was 160/108 and then 147/113. Pulse was in the 120s to 130s. Her respiratory rate was tachypneic at 30. She arrived to the emergency room at 1656 with a temperature of 37.1, pulse 67, respiratory rate 21, blood pressure 139/82, and O2 saturation 98 percent. Her exam shows some slight slurred speech beginning which improved and she stated that she had a headache in the emergency room. She had no other focal weakness or deficit on exam. Tele stroke with Dr. Zoila Barrow resulted in no tPA since her symptoms had cleared. CBC, Chem profile, liver profile, and Covid-[address] scan of the head showed an old left medial occipital stroke. The patient is allergic to radiographic dye and so MR angiography of the head showed no vessel stenoses or anomalies. Similarly MR angiography of the neck was unremarkable. MRI of the brain showed the old medial left occipital stroke and a few tiny old white matter spots. There were no acute changes. Head this morning the patient is asymptomatic. Last evening she had headache and Tylenol plus some food helped. She says she is slightly anxious and confused this morning. Hemoglobin A1c is 5.6. Triglycerides 66 and total cholesterol 111. heart rhythm is been in the 60s to 70s in sinus. Allergies Allergy/AdvReac Type Severity Reaction Status Date / Time nitrofurantoin Allergy Intermediate Severe Verified 07/05/20 17:44 [From Macrobid] Vomitting Bactrim Allergy Unknown UNKNOWN Unverified 04/13/17 11:29 REACTION Iodinated Contrast Media Allergy Unknown ITCHY, Verified 07/05/20 17:44 HEADACHE,SCRATCHY THROAT,SOB Macrolide Antibiotics Allergy Unknown ITCHING Verified 07/05/20 17:44 NSAIDS (Non-Steroidal Allergy Unknown CHEST PAIN Unverified 07/05/20 17:44 Anti-Inflamma Quinolones Allergy Unknown UNKNOWN Verified 07/05/20 17:44 shellfish derived Allergy Unknown HEADACHES,RASH Verified 07/05/20 17:44 ITCHY sulfamethoxazole Allergy Unknown UNKNOWN Unverified 07/05/20 17:44 REACTION tramadol Allergy Unknown UNKNOWN Unverified 07/05/20 17:44 REACTION trimethoprim Allergy Unknown UNKNOWN Unverified 07/05/20 17:44 REACTION clarithromycin [From Biaxin] Allergy Unknown Unverified 07/05/20 17:44 diclofenac Allergy Unknown Unverified 07/05/20 17:44 propoxyphene AdvReac Intermediate N/V Verified 07/05/20 17:44 acetaminophen AdvReac Mild FEELS Verified 07/05/20 17:44 TINGLING-FEELS WEIRD diphenhydramine AdvReac Mild "Gets hot." Verified 07/05/20 17:44 oxycodone AdvReac Mild ITCHING A Verified 07/05/20 17:44 LITTLE-TAKING NOW Cephalosporins AdvReac Unknown TROUBLE Verified 07/05/20 17:44 BREATHING,NAUSEA AND VOMITING morphine AdvReac Unknown DYSPEPSIA Unverified 07/05/20 17:44 Iodide Allergy Unknown UNKNOWN Uncoded 07/05/20 17:44 REACTION Home Medications Medication Instructions Recorded Confirmed Type olopatadine 0.2 % eye drops 1 drops OP DAILY #2.5 ml 06/04/19 07/05/20 Rx albuterol sulfate 2.5 mg INH .COMPLEX PRN #75 ml 07/24/19 07/05/20 Rx lactulose 10 gram/15 mL oral 30 gm PO BID PRN 30 Days #1892 ml 08/29/19 07/05/20 Rx solution linaclotide 290 mcg capsule 290 mcg PO DAILY #30 cap 08/29/19 07/05/20 Rx promethazine 25 mg tablet 25 mg PO Q12H PRN #30 tab 10/29/19 07/05/20 Rx montelukast 10 mg tablet 10 mg PO QPM #30 tab 02/03/20 07/05/20 Rx ipratropium 20 mcg-albuterol 100 1 puff INHALATION QID #4 g MDD 6 02/12/20 07/05/20 Rx mcg/actuation mist for inhalation INHALATIONS/24 HOURS alendronate 70 mg tablet 70 mg PO WEEKLY #4 tab 02/25/20 07/05/20 Rx apixaban 5 mg tablet 5 mg PO BID #60 tab 03/02/20 07/05/20 Rx clopidogrel 75 mg tablet 75 mg PO DAILY #30 tab 03/09/20 07/05/20 Rx rosuvastatin 40 mg tablet 40 mg PO DAILY #90 tab 04/28/20 07/05/20 Rx amitriptyline 25 mg tablet 25 mg PO DAILY #30 tab 05/07/20 07/05/20 Rx pantoprazole 40 mg tablet,delayed 40 mg PO BID #60 tab 05/07/20 07/05/20 Rx release loratadine 10 mg tablet 10 mg PO DAILY #30 tab 05/13/20 07/05/20 Rx diclofenac sodium 1 % topical gel 4 g TOP QID #100 gm 05/19/20 07/05/20 Rx alprazolam 0.5 mg tablet 0.5 mg PO BID #60 tab 06/29/20 07/05/20 Rx fentanyl 75 mcg/hr transdermal 1 patch TD Q72H #10 ea 07/01/20 07/05/20 Rx patch oxycodone 10 mg tablet 10 mg PO TID #90 tab 07/01/20 07/05/20 Rx azelastine 137 mcg INTRANASAL BID PRN 07/05/20 07/05/20 History Patient History Medical History (Updated 07/06/20 @ 09:37 by Matthew Luo MD) Acid reflux disease Anxiety Asthma Benign neoplasm of colon Bipolar disorder Chronic constipation Chronic lumbar pain Controlled substance agreement signed COPD (chronic obstructive pulmonary disease) Depressive disorder Difficulty reading due to visual problem Dysphagia Fibromyalgia Hearing difficulty Hypertension Irritable bowel syndrome with constipation Left knee pain Lumbar degenerative disc disease Migraine Mixed dyslipidemia Osteoporosis Rhinitis Right hip pain Right shoulder pain Seasonal allergies Shortness of breath Stress incontinence in female Surgical History H/O elbow surgery right, March 2017, Dr. Muhammad H/O shoulder surgery right, March 2017, Dr. Muhammad H/O: hysterectomy History of breast augmentation 1990s S/P patent foramen ovale closure age 44 Family History (Updated 07/06/20 @ 09:32 by Matthew Luo MD) Father , age 54 of colorectal cancer Colorectal cancer Diabetes Lung disease Daughter Anxiety Mother Cancer Heart disease Denies family history of Ovarian cancer Prostate cancer Myocardial infarction Breast cancer Social History Smoking Status: Former smoker Tobacco Type: Cigarettes Age Started Using Tobacco: 12; Age Quit Using Tobacco: 55; packs per day: 1.5; Number of Years Since Quit: 5; Second Hand Exposure: No; Hx Alcohol Use: No ( former weekend wine drinker stopping age 44) Hx Substance Use: No Preferred Language: Korean Communication Ability: Effective Visual Impairment: No Limitations Hearing Ability: Normal Incident Coordinator Required: No Beliefs That Will Affect Care: None Current Living Situation: Alone current occupational status: disabled current occupation: 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 Feels Safe at Home: Yes Dental Care, Regularly: No Physical Activity Frequency: 1-2 Times per Week Seatbelt Use: always Sunscreen Use: No Assistive Devices: None Review of Systems Constitutional: + fatigue; no fever and no weakness Eyes: no diplopia, no eye pain and no worsening vision Ear, Nose, Mouth, Throat: no ear pain, no tinnitus, no hearing loss, no dizziness, no hoarseness and no dysphagia Respiratory: no cough and no dyspnea Cardiovascular: no chest pain, no palpitations and no lightheadedness Gastrointestinal: no abdominal pain, no nausea and no vomiting Genitourinary: no dysuria, no urinary frequency and no urinary incontinence Musculoskeletal: + back pain and + neck pain; no radicular pain, no joint pain and no myalgia Integumentary: no rash and no lesions Neurologic: + headache(s); no gait abnormality, no localized weakness, no generalized weakness, no tingling, no numbness, no tremor(s), no abnormal movements, no abnormal speech, no confusion and no memory loss Psychiatric: + depression and + anxiety; no irritability, no difficulty concentrating, no confusion and no hallucinations Endocrine: no fatigue and no flushing Hematologic / Lymphatic: no easy bleeding and no easy bruising Allergy / Immunological: no urticaria and no problem reported Exam (Neuro) Physical Exam: The patient is right-handed. The patient is awake, alert, and attentive. Speech is normal without any aphasia or dysarthria. She can name objects, repeat phrases, and has normal spontaneous speech. Mentation and thought processes are intact, with orientation to person, place and time, and normal fund of knowledge. Attention and concentration are normal. Mood and affect are normal and appropriate. General appearance and grooming are normal. Short and long-term memory are intact (I do not detect any confusion). The discs are sharp with positive venous pulsations bilaterally. There are no exudates, hemorrhages, or blood vessel changes seen. Pupils are 3 mm bilaterally and reactive to light. Extraocular eye muscles are intact without nystagmus. Visual acuity seem normal grossly to confrontation. There may be some decrease visual hanson to the far right with confrontation. There are no deficits to sensation in the face in all 3 distributions of the fifth cranial nerve bilaterally. Corneal reflexes are positive bilaterally. Facial strength and symmetry was normal bilaterally. Hearing seems normal to whisper and finger rub bilaterally. Palate moves well without asymmetry. There is normal sternocleidomastoid and trapezius (shoulder shrug) strength bilaterally. Tongue is midline with good strength bilaterally. Neck has a full range of motion without discomfort. There are no cervical bruits bilaterally. There are no cranial or ocular bruits. Heart is without murmur. There is a regular rhythm and rate. Cervical, thoracic, and lumbar spine are tender to palpation. Gait is narrow based, with good arm swing, turns, and stance. Balance is normal eyes open or closed. With outstretched arms there is no drift. There are no resting, postural, or action tremors. There is no ataxia with finger to nose testing. There is good facility in the hands. No other abnormal involuntary movements are noted. Motor strength is 5/5 diffusely in the arms bilaterally including deltoids, biceps, triceps, brachioradialis, wrist flexors and extensors, glaze wiper, and intrinsic hand muscles. Motor strength is 5/5 diffusely in the legs bilaterally including hip flexors, quadriceps, hamstrings, gastrocnemius, tibialis anterior, tibialis posterior, and Peroneii muscles. Toe extensors are normal and there is good bulk in the extensor digitorum brevis muscles bilaterally. The limbs have good tone without rigidity or spasticity. There is no atrophy noted in the muscles. Muscle bulk is normal, there is no tenderness to palpation, no myotonia to percussion, and no fasciculations seen. Sensory examination is intact to touch and pin throughout all 4 limbs diffusely. Reflexes are 2/4 in the biceps, triceps, brachioradialis, quadriceps, and Achilles tendons bilaterally. There is no clonus bilaterally. Toes are downgoing with plantar stimulation bilaterally. Peripheral pulses are present and of normal quality distally in all 4 limbs. There is no peripheral edema noted in the limbs. Results & Data ([facility]) Vital Signs (Past 12 Hours) Vital Signs Temp Pulse Pulse Resp BP Pulse Ox 07/06/20 08:21 36.4 C L 68 20 116/81 95 07/06/20 07:10 80 16 95 07/06/20 03:54 36.5 C 64 17 95/63 L 97 07/05/20 23:49 36.9 C 71 17 118/82 98 07/05/20 23:00 75 PG Care Time/CCT Total # of Minutes Spent Total Time Spent with Patient: Total time spent is greater than 50% in coordination of care (as documented) at patient's floor/unit and/or counseling patient: Coding Level of Care Code 75328 OBS Care - Level 3 Diagnoses Stroke-like symptoms R29.90 Hypertension I10 Migraine G43.909 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
[2020-07-06] MEDS: DICLOFENAC SOD 1% GEL 100 GM TUBE EXT SCH ×3 (09:08→16:24)
[2020-07-06] MEDS: SODIUM CHLORIDE 0.9% 1000ML 1,000 ML IV SCH (09:10)
--- NOTE | 2020-07-06 13:26 | XCELERA ---
[id number]
[2020-07-06] MEDS ORDERED: STROKE PATIENT DISCHARGE STA (14:20)
--- NOTE | 2020-07-06 14:57 | Electrocardiogram Report ---
Test Reason : Blood Pressure : / mmHG Vent. Rate : 070 BPM Atrial Rate : 070 BPM P-R Int : 166 ms QRS Dur : 078 ms QT Int : 382 ms P-R-T Axes : 074 065 057 degrees QTc Int : 412 ms Poor data quality, interpretation may be adversely affected Normal sinus rhythm Left atrial enlargement Incomplete right bundle branch block Borderline ECG When compared with ECG of 18-SEP-2019 12:20, No significant change Confirmed by Christian Bailon ([id number]) on 07/06/2020 2:57:18 PM Referred By: REFERRED SELF Confirmed By:Christian Bailon
--- NOTE | 2020-07-06 18:19 | Discharge Summary ---
Date of Service July 06, 2020 Admission HPI Per Admitting Provider This is a 60-year-old female who has a previous history of stroke in the past. Her records were reviewed and her most recent stroke was in July 12, 2019. At that time she was in [place], [place] [facility] and received care at a facility in that town. Was were reviewed and at that time patient complained of visual disturbance as well as right-sided numbness. The work-up she underwent at that hospital included an echocardiogram that showed a 60% ejection fraction and a PFO closure device. No valvular vegetations were noted. There is no evidence of residual ASD. He did undergo an MRI of the brain which showed no new strokes however an old left occipital stroke was noted. She also had an MRA which showed no stenosis of the carotid or vertebral arteries bilaterally. 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 She was then instructed to follow-up with physicians in her home town. Since that episode the patient is followed with her primary care physician. She presented to the emergency department today because at approximately 3:00 she developed some right-sided visual loss which lasted about 15 minutes. Shortly thereafter she felt as though she had tongue numbness as well as right-sided numbness and weakness in her arm and leg. EMS was summoned and she was brought to the emergency department. I was asked to see her at approximately 6:00 PM. By this time all of her symptoms have completely resolved. At present time she only complains of headache. I did discuss with the treating emergency room physician who called a stroke alert and did telemetry neurology with Dr. Barrow at [facility] and has the patient says that she takes dual antiplatelet therapy as well as Eliquis was not felt to be a candidate for TPA. Since arrival to the emergency department patient underwent a CT scan of her head that showed no acute hemorrhage however a left occipital lobe infarct was noted that was felt to be subacute or chronic in nature. CT angiogram could not be performed due to contrast allergy.EKG was performed that showed sinus rhythm without acute ischemic changes. CBC was performed that showed her white blood cell count hemoglobin, hematocrit, and platelet count were all within normal range. Coagulation studies were all within normal range. Electrolytes revealed sodium and potassium are within normal range her BUN was noted be within normal range liver her creatinine was noted to 1.5 which was elevated from baseline values of 0.9. A Covid test has been ordered and is pending. Visit with the patient at bedside at approximately 6:00 PM as stated. Time of my interview she was only complaining of a headache and her previously noted neurologic symptoms have resolved. Prior to this episode she says she was in her usual state of health. She has not had any recent fevers, shakes, or chills. She did not have any palpitations or chest pain preceding this episode. She denies cough or shortness of breath. Patient states that she did not fall and did not strike her head or lose consciousness. The time of my interview she was resting comfortably in bed in no distress. Principal Diagnosis Likely vasospasm (concern for compex migraine subtype) vs. TIA Discharge Exam Constitutional WD/WN, vitals as above Eyes EOM intact bilaterally; no conjunctival abnormality ENMT external ear and nose normal, oropharynx normal Neck trachea midline, no thyromegaly normal visual inspection Respiratory normal respiratory effort, lungs clear to auscultation no respiratory distress Cardiovascular RRR, no murmur, no edema Gastrointestinal (Abdomen) Inspection/Auscultation: abdomen normal to inspection; abdomen not distended Musculoskeletal no cyanosis or clubbing, extremities motor strength 5/5 Skin no rashes, warm and dry Neurologic moves all extremities and awake Psychiatric Orientation: alert, oriented to person and cooperative Discharge Data Allergies Allergy/AdvReac Type Severity Reaction Status Date / Time nitrofurantoin Allergy Intermediate Severe Verified 07/05/20 17:44 [From Macrobid] Vomitting Bactrim Allergy Unknown UNKNOWN Unverified 04/13/17 11:29 REACTION Iodinated Contrast Media Allergy Unknown ITCHY, Verified 07/05/20 17:44 HEADACHE,SCRATCHY THROAT,SOB Macrolide Antibiotics Allergy Unknown ITCHING Verified 07/05/20 17:44 NSAIDS (Non-Steroidal Allergy Unknown CHEST PAIN Unverified 07/05/20 17:44 Anti-Inflamma Quinolones Allergy Unknown UNKNOWN Verified 07/05/20 17:44 shellfish derived Allergy Unknown HEADACHES,RASH Verified 07/05/20 17:44 ITCHY sulfamethoxazole Allergy Unknown UNKNOWN Unverified 07/05/20 17:44 REACTION tramadol Allergy Unknown UNKNOWN Unverified 07/05/20 17:44 REACTION trimethoprim Allergy Unknown UNKNOWN Unverified 07/05/20 17:44 REACTION clarithromycin [From Biaxin] Allergy Unknown Unverified 07/05/20 17:44 diclofenac Allergy Unknown Unverified 07/05/20 17:44 propoxyphene AdvReac Intermediate N/V Verified 07/05/20 17:44 acetaminophen AdvReac Mild FEELS Verified 07/05/20 17:44 TINGLING-FEELS WEIRD diphenhydramine AdvReac Mild "Gets hot." Verified 07/05/20 17:44 oxycodone AdvReac Mild ITCHING A Verified 07/05/20 17:44 LITTLE-TAKING NOW Cephalosporins AdvReac Unknown TROUBLE Verified 07/05/20 17:44 BREATHING,NAUSEA AND VOMITING morphine AdvReac Unknown DYSPEPSIA Unverified 07/05/20 17:44 Iodide Allergy Unknown UNKNOWN Uncoded 07/05/20 17:44 REACTION Consultations 07/05/20 17:53 ED Decision to Admit Stat 07/05/20 19:31 Consult Case Management - Discharge Planning Routine Consult Neurology Routine Ordered Studies 07/05/20 16:39 CT head/brain wo con Stat 07/05/20 19:31 MR angio head wo con Urgent MR brain wo con Urgent 07/05/20 20:39 MRI Angio Neck [MR angio neck wo con] Urgent Hospital Course (1) History of stroke: 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 - She had all symptoms resolve by discharge. - Seen by neurology with assumption that this was vasospasm (type of migraine). TIA could not be fully ruled out, though she was optimized for stroke care. - Echo showed no recurrent PFO. (2) Acute kidney injury: (3) Anxiety: Continue Xanax, consider adding on SSRI for panic disorder Continue amitriptyline (4) Migraine: Has a history of migraines Continue amitriptyline Follow-up with neurology (5) Asthma: Continue albuterol and ipratropium No acute issues (6) Mixed dyslipidemia: Continue statin Total Time Total Time Spent Total Time Spent (In Minutes): 35 Discharge Plan Discharge Items Patient Disposition: Home - Self-Care Reason For Visit: CVA Discharge Diagnosis: Vasospasm vs. TIA Condition on Discharge: Good Activity: Resume your previous activity Non-emergency contact: Primary Care Provider and Neurologist Call non-emergency contact if: your symptoms worsen Follow-up/Referrals: Emma Alexander MD [Primary Care Provider] - Diet: Heart Healthy Addtl Attending Provider Instructions: You were admitted for symptoms that are hard to differentiate from a TIA vs. vasospasm. Luckily, the symptoms resolved. We did testing which did not show a stroke. Likewise, the blood vessels in your head and neck look healthy. Dr. Luo (the neurologist) felt that you may be having vasospasm which can cause these symptoms. If your blood pressure tolerates it, he recommended starting a medication called verapamil, but I would like to let your PCP consider this given it can lower your heart rate and lower your blood pressure. Here in the hospital, your blood pressure is low-normal at 110/80, so I am reluctant to start it for the time-being. If these symptoms come back, please call your PCP or return to the hospital. Pending Studies at Discharge: No Stand-Alone Forms: [facility] [employer], Smoking Cessation Medications and DC Order Prescriptions: Continued olopatadine 0.2 % drops 1 drops OP DAILY Qty: 2.5 RF: 5 promethazine 25 mg tablet 25 mg PO Q12H PRN (Reason: migraine headache) Qty: 30 RF: 5 fluticasone furoate-vilanterol [Breo Ellipta] 100-25 mcg/dose blister with device 1 inh inhalation DAILY RF: 0 Combivent Respimat 20-100 mcg/actuation mist 1 puff inhalation QID MDD 6 INHALATIONS/24 HOURS Qty: 4 RF: 5 alendronate 70 mg tablet 70 mg PO WEEKLY Qty: 4 RF: 5 Eliquis 5 mg tablet 5 mg PO BID Qty: 60 RF: 5 clopidogrel 75 mg tablet 75 mg PO DAILY Qty: 30 RF: 5 rosuvastatin 40 mg tablet 40 mg PO DAILY Qty: 90 RF: 1 loratadine 10 mg tablet 10 mg PO DAILY Qty: 30 RF: 5 diclofenac sodium [Voltaren] 1 % gel 4 g TOP QID Qty: 100 RF: 2 alprazolam 0.5 mg tablet 0.5 mg PO BID Qty: 60 RF: 0 fentanyl 75 mcg/hr patch 72 hour 1 patch TD Q72H Qty: 10 RF: 0 oxycodone 10 mg tablet 10 mg PO TID Qty: 90 RF: 0 montelukast [Singulair] 10 mg tablet 10 mg PO QPM Qty: 30 RF: 5 pantoprazole 40 mg tablet,delayed release (DR/EC) 40 mg PO BID Qty: 60 RF: 1 amitriptyline 25 mg tablet 25 mg PO DAILY Qty: 30 RF: 5 albuterol sulfate 2.5 mg /3 mL (0.083 %) solution for nebulization 2.5 mg INH .COMPLEX PRN (Reason: shortness of breath or wheezing) Qty: 75 RF: 3 linaclotide 290 mcg capsule 290 mcg PO DAILY Qty: 30 RF: 5 lactulose 10 gram/15 mL solution 30 gm PO BID PRN (Reason: constipation) 30 Days Qty: 1892 RF: 4 azelastine 137 mcg (0.1 %) aerosol,spray 137 mcg intranasal BID PRN (Reason: Nasal Congestion) RF: 0 Discharge Orders: Discharge Order (Routine); Ordered 07/06/20 Ordered By: Luis E Balderas/Other Patient Handouts: The First Few Hours After a Stroke, Symptoms of Stroke, Stroke: Self-Care, Discharge Instructions for Stroke Admission Data Admit Date/Time: 07/05/20 18:36 Attending Provider: Luis E Gaston Admit Provider: Kenya Iglesias Primary Care Provider: Emma Alexander Other Providers: Luis E Gaston ; Adam Douglass Other Interventions: Discharge Summary Assessment (RN) Last Done: 07/06/20 14:48 Coding Level of Care Code 72108 OBS Care - Discharge Diagnoses History of stroke Z86.73 Acute kidney injury N17.9 Anxiety F41.9 Migraine G43.909 Asthma J45.909 Mixed dyslipidemia E78.2
[2020-07-07 23:17] LABS: 7-Aminoclonaz, Confirm NEGATIVE ng/mL (<25); Hydro-Alp Ur, GC/MS 129 ng/mL (<25); Hydroxyethylflurazepam, Conf NEGATIVE ng/mL (<50); Hydroxymidazolam Ur, GC/MS NEGATIVE ng/mL (<50); Hydroxytriazolam NEGATIVE ng/mL (<50); Lorazepam, Ur GC/MS NEGATIVE ng/mL (<50); Nordiazepam, Confirm NEGATIVE ng/mL (<50); Oxazepam Ur, GC/MS NEGATIVE ng/mL (<50); Temazepam, Confirm NEGATIVE ng/mL (<50)
== END 2020-07-06 17:42 | disposition home or self-care (01) ==
LOC: 2S 16:42 → ED 16:42 → SUATTDRO 18:36 → 2S 18:49